=== PATIENT | female | born 2000 | race Caucasian/White ===

== ENCOUNTER 2023-04-22 16:35 | Emergency (ER) | payer BC, SELFPAY ==
[2023-04-22 16:38] VITALS: BP 116/78; PULSE 82; RESP 16; TEMP 37.2; O2SAT 99; BMI 23.0
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
[2023-04-22] MEDS: BACITRACIN 0.9 GM PACKET 1 PACKET TOPICAL (17:00)
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
== END 2023-04-22 17:11 | disposition home or self-care (01) ==
PROVIDERS: Emergency Provider Emergency Medicine
DX: T24.201A Burn of second degree of unspecified site of right lower limb, except ankle and foot, initial encounter (principal); L08.9 Local infection of the skin and subcutaneous tissue, unspecified; Z86.14 Personal history of Methicillin resistant Staphylococcus aureus infection; X19.XXXA Contact with other heat and hot substances, initial encounter
CPT/HCPCS: 99282

== ENCOUNTER 2024-01-23 15:55 | Emergency (ER) | payer BC, SELFPAY ==
[2024-01-23 16:04] VITALS: BP 136/69; PULSE 95; TEMP 37.1; O2SAT 98; BMI 24.3
--- NOTE | 2024-01-23 21:41 | ED.GENADUL1 ---
HPI HPI - General Adult General Chief complaint: Urogenital-Female Stated complaint: STD Testing Requested Time Seen by Provider: 01/23/24 16:24 Source: patient Mode of arrival: walk-in Limitations: no limitations History of Present Illness HPI narrative: Patient is a 23-year-old female who is presenting to the Emergency Room with chief concern of been exposed to herpes. Patient stated her boyfriend calls her 2 days ago and stated that he was diagnosed with herpes. Patient's boyfriend would not show the patient the lesions or show any evidence of herpes. Patient's mother is at bedside. Patient was last sexually active with her boyfriend approximately 10 days ago. Patient has no symptoms. She has no urinary frequency, urgency or burning. She has no vaginal bleeding, discharge or orders. Patient has no rashes, lesions. Patient has no external or internal vaginal complaints, no urinary complaints, no diarrhea or constipation. Patient says that she has a history of cold sores. She currently has no cold sores or canker sores. Patient has no PCP or MANAGER BABY. Patient is here for STD check to rule out herpes. Patient also tells nursing staff that I want to be ruled out for all STDs despite having no symptoms. . All systems are negative except as noted/marked. All systems reviewed and otherwise negative. . Nurses note and vital signs reviewed and patient is not hypoxic. General: The patient appears well and in no apparent distress. Patient is resting comfortably on cart. Patient is not toxic, lethargic, or listless Skin: Warm, dry, no pallor noted. There is no rash noted. No petechiae, purpura. Head: Normocephalic, atraumatic Eye: Normal conjunctiva, no drainage, EOMI. PERRL Ears, Nose, Mouth, and Throat: oral mucosa is moist. Nares patent. Mouth without vesicles. Patient has her sores or cold sores. Cardiovascular: Regular Rate and Rhythm, no murmur, gallop, rub Respiratory: Patient is in no distress, no accessory muscle use, lungs are clear to auscultation, no wheezing, rales or rhonchi Back: non-tender, GI: soft, no tenderness Musculoskeletal: Patient has full range of motion of all of the extremities, no motor, sensory, or focal neurological deficits Neurological: A&O x3, normal speech Psychiatric: Cooperative Related Data Home Medications ?Medication ?Instructions ?Recorded ?Confirmed buspirone 15 mg tablet 15 mg PO BID 01/23/24 01/23/24 Previous Rx's ?Medication ?Instructions ?Recorded clindamycin HCl 150 mg capsule 300 mg (2 x 150 mg) PO Q6H 10 days 04/22/23 #80 caps mupirocin 2 % topical ointment 1 applic topical BID #15 grams 04/22/23 Allergies Allergy/AdvReac Type Severity Reaction Status Date / Time cefdinir [From Omnicef] AdvReac Mild Verified 04/22/23 16:42 Opioid HPI Opioid Management Most Recent Opioid Data: No Data to Display PFSH PFSH Social History Smoking status: Current every day smoker Exam Constitutional Vital Signs, click to edit/add: Last Vital Signs Temp 98.7 F 01/23/24 16:04 Pulse 95 H 01/23/24 16:04 Resp 20 01/23/24 16:04 BP 136/69 01/23/24 16:04 Pulse Ox 98 01/23/24 16:04 Course Vital Signs Vital signs: Vital Signs Temperature 98.7 F 01/23/24 16:04 Pulse Rate 95 H 01/23/24 16:04 Respiratory Rate 20 01/23/24 16:04 Blood Pressure 136/69 01/23/24 16:04 Pulse Oximetry 98 01/23/24 16:04 Temperature 98.7 F 01/23/24 16:04 Pulse Rate 95 H 01/23/24 16:04 Respiratory Rate 20 01/23/24 16:04 Blood Pressure 136/69 01/23/24 16:04 Pulse Oximetry 98 01/23/24 16:04 Medical Decision Making MDM Narrative Medical decision making narrative: Yanci HALEY was at bedside during the entire HPI and physical exam and discussion with patient and mother. Patient has no symptoms of any STD. Transfer of herpes was discussed at bedside and on discharge paperwork. Patient was last with her boyfriend sexually admittedly over 10 days ago, patient has not been exposed during any sexual activity with an STD that she is aware of. Patient was told to days ago by her boyfriend and he had herpes. Patient was recommended that she needs a follow-up with a free clinic, health department, or establish PCP and MANAGER BABY. Paatient is a sexually active 23-year-old female. Patient has never had a Pap or pelvic test. Education having Tests annually went sexually active and young age was discussed at bedside with patient and mother, mother is not pressure to do this testing. Cervical cancer screening was discussed with patient and mother. Patient understands that she has no acute indication for any emergency testing at this time. Education on STD exposure, safe sex practices were discussed. Patient using no control. Patient says she is a . She is using no condoms, no motor control, nothing to stop . Discharge Plan Discharge Stand Alone Forms: Portal Instructions Chief Complaint: Urogenital-Female Clinical Impression: Possible exposure to STD Patient Disposition: Home, Self-Care Time of Disposition Decision: 16:43 Condition: Fair Prescriptions / Home Meds: No Action clindamycin HCl 150 mg capsule 300 mg PO Q6H 10 Days Qty: 80 0RF mupirocin 2 % ointment 1 applic topical BID Qty: 15 0RF buspirone 15 mg tablet 15 mg PO BID Print Language: Qatari Instructions: Sexually Transmitted Diseases (ED), Male Condom Use (ED), Safe Sex Practices (ED) Additional Instructions: If you would like any type of herpes or STD testing, follow-up with the health department, family doctor, or MANAGER BABY. A list of family doctors have been provided to you. You have no signs or symptoms of STD at this time. Referrals: Physician,Non-Staff, [Primary Care Provider] - 1 week Discharge Date/Time: 01/23/24 16:53
== END 2024-01-23 16:53 | disposition home or self-care (01) ==
PROVIDERS: Emergency Provider Emergency Medicine
DX: Z20.2 Contact with and (suspected) exposure to infections with a predominantly sexual mode of transmission (principal); F17.210 Nicotine dependence, cigarettes, uncomplicated; Z79.899 Other long term (current) drug therapy
CPT/HCPCS: 99281

== ENCOUNTER 2024-04-30 16:08 | Emergency (ER) | payer BC, SELFPAY ==
[2024-04-30 16:22] VITALS: BP 139/86; PULSE 72; TEMP 36.9; O2SAT 99; BMI 25.7
== END 2024-04-30 18:41 | disposition left against medical advice (07) ==
PROVIDERS: Emergency Provider Emergency Medicine
DX: Z53.21 Procedure and treatment not carried out due to patient leaving prior to being seen by health care provider (principal)

== ENCOUNTER 2024-05-31 18:34 | Emergency (ER) | payer OTHER, BC, SELFPAY ==
[2024-05-31 18:40] VITALS: BP 153/76; PULSE 86; TEMP 36.9; O2SAT 98; BMI 25.7
--- NOTE | 2024-05-31 18:43 | XR_ITS ---
The [address] [address] Patient Name: GERMANIA LARA MRN: [id number] date: 2000 Sex: F Assigned Patient Location: ED.MAIN Current Patient Location: Accession/Order Number: [id number] Exam Date: 05/31/2024 19:26 Report Date: 05/31/2024 20:37 At the request of: BRIGETTE SETHI Procedure: XR foot LT min 3V EXAM: XR foot LT min 3V HISTORY: Injury COMPARISON: None. TECHNIQUE: AP lateral oblique x-ray left foot. FINDINGS: Nondisplaced fracture base of the distal phalanx great toe along the lateral aspect. Extends to the periphery of the joint, no step off noted. Normal joint space. Soft tissue swelling most prominent laterally. No other fracture seen. Remaining toes metatarsals unremarkable. Midfoot and hindfoot unremarkable. XR/XR foot LT min 3V IMPRESSION: Nondisplaced fracture base of distal phalanx great toe. Electronically authenticated by: ELISA SCHAEFER Date: 05/31/2024 20:37
--- NOTE | 2024-05-31 19:52 | ED.LOWEXI1 ---
HPI HPI - Extremity Injury (Lower) General Chief Complaint: Extremity Injury, Lower Stated Complaint: FOOT INJURY Time Seen by Provider: 05/31/24 19:50 Source: patient Mode of arrival: walk-in Limitations: no limitations History of Present Illness HPI Narrative: Patient is a 23-year-old female who presents to the emergency department for an injury to her left great toe that occurred at work. She states that she dropped a metal ski on her toe. She sustained bruising and swelling to the toe. She is able to take some steps. No concern for . X-rays were obtained in the lobby prior to my evaluation. No medications taken prior to arrival. She denies any other associated injuries. Related Data Previous Rx's ?Medication ?Instructions ?Recorded ketorolac 10 mg tablet 10 mg PO TID PRN pain #10 tabs 05/31/24 ondansetron 4 mg disintegrating 4 mg PO Q6H PRN nausea and 05/31/24 tablet vomiting #12 tabs oxycodone-acetaminophen 5 mg-325 1 tab PO Q6H PRN pain 3 days #10 05/31/24 mg tablet (Percocet) tabs Allergies Allergy/AdvReac Type Severity Reaction Status Date / Time cefdinir [From Omnicef] AdvReac Mild Verified 04/22/23 16:42 Opioid HPI Opioid Management Most Recent Pain and Opioid Data: Last Pain Scale 8 05/31/24 20:10 Review of Systems ROS Constitutional Denies: fever or chills Ears, nose, mouth, and throat Denies: throat pain or nasal congestion Respiratory Denies: shortness of breath Gastrointestinal Denies: nausea or vomiting Musculoskeletal Reports: extremity pain, extremity swelling, joint pain and limited range of motion; Denies: back pain or neck pain Integumentary/Breast Denies: rash Hematologic/Lymphatic Denies: easy bruising or easy bleeding PFSH PFSH Social History Smoking status: Current every day smoker Exam Narrative Exam Narrative: Gen.: Awake, alert, in no distress Head: Normocephalic, atraumatic ENT: Moist mucous membranes Respiratory: No respiratory distress Extremities: Left great toe with diffuse edema, tenderness and ecchymosis noted to the dorsal aspect of the toe. No subungual hematoma noted. No lacerations or abrasions. Limited flexion and extension of the toes due to pain with 2+ left DP pulse Psych: Normal mood and affect Neuro: No focal neuro deficit Skin: Warm, dry, intact Constitutional Vital Signs, click to edit/add: Last Vital Signs Temp 98.4 F 05/31/24 18:40 Pulse 86 05/31/24 18:40 Resp 18 05/31/24 18:40 BP 153/76 H 05/31/24 18:40 Pulse Ox 98 05/31/24 18:40 O2 Del Method Room Air 05/31/24 18:40 Course Vital Signs Vital signs: Vital Signs Temperature 98.4 F 05/31/24 18:40 Pulse Rate 86 05/31/24 18:40 Respiratory Rate 18 05/31/24 18:40 Blood Pressure 153/76 H 05/31/24 18:40 Pulse Oximetry 98 05/31/24 18:40 Oxygen Delivery Method Room Air 05/31/24 18:40 Temperature 98.4 F 05/31/24 18:40 Pulse Rate 86 05/31/24 18:40 Respiratory Rate 18 05/31/24 18:40 Blood Pressure 153/76 H 05/31/24 18:40 Pulse Oximetry 98 05/31/24 18:40 Oxygen Delivery Method Room Air 05/31/24 18:40 MDM - Extremity Injury (Lower) MDM Narrative Medical decision making narrative: X-rays of the foot were obtained in the lobby showing the patient has an avulsion fracture of the proximal aspect of the left great toe, proximal phalanx. She is neurovascularly intact pre and post postop shoe application. Rest, ice, elevate. Short course of analgesics and NSAIDs given with work restrictions. Return to the ER if symptoms change or worsen. Follow-up with occupational health and podiatry. Breathalyzer EtOH was obtained by [email or web address] drug testing. We do not have any technologist infectious disease available for urine drug testing and occupational health is closed at this time. We attempted to contact the patient supervisor logging to make them aware that the patient will need to return to occupational health on Sunday for urine drug testing if needed. We did not receive an answer or call back from the patient's employer. I did contact the occupational health nurse, Yusef, who recommended the patient come back Sunday to the office for drug testing and further evaluation and restrictions per occupational health. SUPERVISED APC VISIT, PHYSICIAN ATTESTATION: Based on the medical record the care appears appropriate. ? Medical Records Attestation: I reviewed the patient's medical records. Imaging Data XR foot: Attestation: I have reviewed the pertinent imaging results. Discharge Plan Discharge Stand Alone Forms: Portal Instructions Chief Complaint: Extremity Injury, Lower Clinical Impression: Closed fracture of left great toe Patient Disposition: Home, Self-Care Time of Disposition Decision: 20:03 Condition: Good Prescriptions / Home Meds: New ketorolac 10 mg tablet 10 mg PO TID PRN (Reason: pain) Qty: 10 0RF oxycodone-acetaminophen [Percocet] 5-325 mg tablet 1 tab PO Q6H PRN (Reason: pain) 3 Days Qty: 10 0RF Rx Instructions: DX: S92.405B ondansetron 4 mg tablet,disintegrating 4 mg PO Q6H PRN (Reason: nausea and vomiting) Qty: 12 0RF Print Language: Maori Instructions: Toe Fracture (ED) Additional Instructions: Rest, ice, elevate the foot. Please follow up with occupational health on Sunday for drug testing and further instructions. Referrals: [facility] [Outside] - 06/02/24 Cristi Naranjo DPM [Physician] - As soon as possible
[2024-05-31] MEDS: HYDROCODONE/ACET 5-325 MG TABLET 2 TAB PO (20:18)
[2024-05-31] MEDS: KETOROLAC TROMETHAMINE 10 MG TABLET PO (20:18)
== END 2024-05-31 20:26 | disposition home or self-care (01) ==
PROVIDERS: Emergency Provider Emergency Medicine
DX: S92.415A Nondisplaced fracture of proximal phalanx of left great toe, initial encounter for closed fracture (principal); W20.8XXA Other cause of strike by thrown, projected or falling object, initial encounter
CPT/HCPCS: 73630; 99284

== ENCOUNTER 2024-07-16 10:00 | Outpatient (OUT) | payer OTHER, SELFPAY ==
--- NOTE | 2024-07-16 | XR_ITS ---
The [address] [address] Patient Name: GERMANIA LARA MRN: [id number] date: 2000 Sex: F Assigned Patient Location: Current Patient Location: Accession/Order Number: [id number] Exam Date: 07/16/2024 10:02 Report Date: 07/17/2024 08:31 At the request of: JOSE METZ Procedure: XR foot LT min 3V PROCEDURE: XR foot LT min 3V COMPARISON: 05/31/2024 HISTORY: LEFT FOOT PAIN FINDINGS: BONES:Again demonstrated is an intra-articular fracture lateral base of the first distal phalanx. Some interval bone formation and bony bridging is observed. No new fracture or dislocation SOFT TISSUES:Negative. No visible soft tissue swelling. EFFUSION:None visible. OTHER: Negative. XR/XR foot LT min 3V IMPRESSION: Stable healing intra-articular fracture lateral base of the first distal phalanx Electronically authenticated by: SOTO CARRILLO Date: 07/17/2024 08:31
--- OUTSIDE RECORDS SUMMARY | 2024-07-16 10:19 | XMS_ITS | CCD ---
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 additional P-5'-P [Catalytic activity/Vol] 16 U/L 10-60 [facility] Serum or plasma albumin/glob ulin mass ratioOrdered By: Magaly Guadarrama on 09-13-2022 Albumin/Globulin [Mass ratio] 1.3 {ratio} [facility] Serum or plasma alkaline swapna sphatase measurement (enzymatic activity/volume)Ordered By: Magaly Guadarrama on 09-13-2022 ALP [Catalytic activity/Vol] 56 U/L 32-92 [facility] Serum or plasma anion gap de terminationOrdered By: Denisa Coleman on 09-13-2022 Anion gap [Moles/Vol] 8.5 mmol/L 6.0-15.0 [facility] Serum or plasma aspartate am inotransferase measurement (enzymatic activity/volume)Ordered By: Magaly Guadarrama on 09-13-2022 AST [Catalytic activity/Vol] 19 U/L 10-42 [facility] Serum or plasma calcium allison urement (mass/volume)Ordered By: Denisa Coleman on 09-13-2022 Calcium [Mass/Vol] 8.6 mg/dL 8.2-10.2 [facility] Serum or plasma chloride melvin surement (moles/volume)Ordered By: Denisa Coleman on 09-13-2022 Chloride [Moles/Vol] 107 mmol/L 95-114 [facility] Serum or plasma glucose allison urement (mass/volume)Ordered By: Denisa Coleman on 09-13-2022 Glucose [Mass/Vol] 96 mg/dL 70-100 [facility] Comment on above: ADA recommended refe rence rangeRandom Glucose Reference Range is dependent on time and content of last meal. Glucose of more than 200 mg/dL in a nonstressed, ambulatory subject supports the diagnosis of Diabetes Mellitus. Serum or plasma non-glucuron idated bilirubin measurement (mass/volume)Ordered By: Magaly Guadarrama on 09-13-2022 Bilirubin.indirect [Mass/Vol] TNP [facility] Comment on above: Test not performed Serum or plasma potassium me asurement (moles/volume)Ordered By: Denisa Coleman on 09-13-2022 Potassium [Moles/Vol] 3.3 mmol/L 3.5-5.1 [facility] Serum or plasma sodium measu rement (moles/volume)Ordered By: Denisa Coleman on 09-13-2022 Sodium [Moles/Vol] 137 mmol/L 136-146 [facility] Serum or plasma total biliru bin measurement (mass/volume)Ordered By: Magaly Guadarrama on 09-13-2022 Bilirubin [Mass/Vol] 0.7 mg/dL 0.3-1.2 [facility] Serum or plasma total carbon dioxide measurement (moles/volume)Ordered By: Denisa Coleman on 09-13-2022 CO2 [Moles/Vol] 24.8 mmol/L 22.0-30.0 [facility] Serum or plasma urea nitroge n measurement (mass/volume)Ordered By: Denisaamilcar Coleman on 09-13-2022 Urea nitrogen [Mass/Vol] 3 mg/dL 07-07 [facility] WBC Auto (Bld) [#/Vol]Ordere d By: Denisaamilcar Coleman on 09-13-2022 WBC (Bld) [#/Vol] 9.6 10*3/uL 3.8-11.6 [facility] CARDIAC MAURICE 3-6on 2 CK [Catalytic activity/Vol] 167 U/L Normal 26-192 [facility] Comment on above: Performed By: #### C MREP #### [facility] [address] [place] [address] Dr. Sylvie Vela CK.MB [Mass/Vol] 1.66 ng/mL Normal <=3.60 [facility] Comment on above: Performed By: #### C MREP #### [facility] [address] [address] [address] Sylvie HATHAWAYTROP 196.2 pg/mL Critically high 4.0-51.3 [facility] Comment on above: Result Comment: CUT- OFF POINTS HAVE BEEN ESTABLISHED BASED ON THE FOURTH UNIVERSAL DEFINITIONS OF MYOCARDIAL INFARCTION. THE UPPER REFERENCE LIMIT (URL) OF TROPONIN, DEFINED THE 99TH PERCENTILE OF cTnI DISTRIBUTION IN A REFERENCE POPULATION, HAS BEEN CONFIRMED THE DECISION THRESHOLD FOR MD DIAGNOSIS. Performed By: #### C MREP #### [facility] [address] [address] [address] Sylvie Vela CK [Catalytic activity/Vol] 113 U/L Normal 26-192 [facility] Comment on above: Performed By: #### C MREP #### [facility] [address] [address] [address] Sylvie Vela CK.MB [Mass/Vol] 1.37 ng/mL Normal <=3.60 [facility] Comment on above: Performed By: #### C MREP #### [facility] [address] [address] [address] Sylvie Vela HSTROP 268.9 pg/mL Critically high 4.0-51.3 [facility] Comment on above: Result Comment: CUT- OFF POINTS HAVE BEEN ESTABLISHED BASED ON THE FOURTH UNIVERSAL DEFINITIONS OF MYOCARDIAL INFARCTION. THE UPPER REFERENCE LIMIT (URL) OF TROPONIN, DEFINED THE 99TH PERCENTILE OF cTnI DISTRIBUTION IN A REFERENCE POPULATION, HAS BEEN CONFIRMED THE DECISION THRESHOLD FOR MD DIAGNOSIS. Performed By: #### C MREP #### [facility] [address] [place] [address] Dr. Sylvie Vela CARDIAC MAURICE ADMITon 022 CK [Catalytic activity/Vol] 94 U/L Normal 26-192 [facility] Comment on above: Performed By: #### C MIGNON ESPARZADM #### [facility] [address] [place] [address] Dr. Sylvie Vela CK.MB [Mass/Vol] 0.82 ng/mL Normal <=3.60 [facility] Comment on above: Performed By: #### C MIGNON ESPARZADM #### [facility] [address] [place] [address] Dr. Sylvie Vela HSTROP 66.3 pg/mL Critically high 4.0-51.3 [facility] Comment on above: Result Comment: CUT- OFF POINTS HAVE BEEN ESTABLISHED BASED ON THE FOURTH UNIVERSAL DEFINITIONS OF MYOCARDIAL INFARCTION. THE UPPER REFERENCE LIMIT (URL) OF TROPONIN, DEFINED THE 99TH PERCENTILE OF cTnI DISTRIBUTION IN A REFERENCE POPULATION, HAS BEEN CONFIRMED THE DECISION THRESHOLD FOR MD DIAGNOSIS. Performed By: #### C MIGNON ESPARZADM #### [facility] [address] [place] [address] Dr. Sylvie Vela JODI 28 ng/mL Normal 9-82 [facility] Comment on above: Performed By: #### C MIGNON ESPARZADM #### [facility] [address] [place] [address] Dr. Sylvie Vela CBC AUTO DIFFon 09-12-2022 BASO # 0.1 103/ul Normal 0.0-0.1 [facility] Comment on above: Performed By: #### C BC #### [facility] [address] [place] [address] Dr. Sylvie Vela Basophils/100 WBC (Bld) 0.4 % Normal 0.2-2.0 [facility] Comment on above: Performed By: #### C BC #### [facility] [address] [place] [address] Dr. Sylvie Vela EO # 0.0 103/ul Normal 0.0-0.7 [facility] Comment on above: Performed By: #### C BC #### [facility] [address] [place] [address] Dr. Sylvie Vela Eosinophils/100 WBC (Bld) 0.1 % Critically low 0.9-7.0 [facility] Comment on above: Performed By: #### C BC #### [facility] [address] [place] [address] Dr. Sylvie Vela Erythrocyte distribution width (RBC) [Ratio] 11.9 % Normal 11.0-15.0 [facility] Comment on above: Performed By: #### C BC #### [facility] [address] [place] [address] Dr. Sylvie Vela Hematocrit (Bld) [Volume fraction] 43.1 % Normal 36.0-48.0 [facility] Comment on above: Performed By: #### C BC #### [facility] [address] [place] [address] Dr. Sylvie Vela Hemoglobin (Bld) [Mass/Vol] 14.5 g/dL Normal 12.0-16.0 [facility] Comment on above: Performed By: #### C BC #### [facility] [address] [place] [address] Dr. Sylvie Vela IG # 0.09 10e3/ul Critically high 0.00-0.03 [facility] Comment on above: Performed By: #### C BC #### [facility] [address] [place] [address] Dr. Sylvie Vela IG % 0.7 % Critically high 0.0-0.5 [facility] Comment on above: Performed By: #### C BC #### [facility] [address] [place] [address] Dr. Sylvie Vela LYMPH # 3.9 103/ul Critically high 1.2-3.8 [facility] Comment on above: Performed By: #### C BC #### [facility] [address] [place] [address] Dr. Sylvie Vela Lymphocytes/100 WBC (Bld) 31.0 % Normal 20.5-60.0 [facility] Comment on above: Performed By: #### C BC #### [facility] [address] [place] [address] Dr. Sylvie Vela MANUAL DIFF REQ NO Normal [facility] Comment on above: Performed By: #### C BC #### [facility] [address] [place] [address] Dr. Sylvie Vela MCH (RBC) [Entitic mass] 30.9 pg Normal 26.7-34.0 [facility] Comment on above: Performed By: #### C BC #### [facility] [address] [place] [address] Dr. Sylvie Vela MCHC (RBC) [Mass/Vol] 33.6 g/dL Normal 29.9-35.2 [facility] Comment on above: Performed By: #### C BC #### [facility] [address] [place] [address] Dr. Sylvie Vela MCV (RBC) [Entitic vol] 91.9 fL Normal 81.0-99.0 [facility] Comment on above: Performed By: #### C BC #### [facility] [address] [place] [address] Dr. Sylvie Vela MONO # 0.4 103/ul Normal 0.3-0.8 [facility] Comment on above: Performed By: #### C BC #### [facility] [address] [place] [address] Dr. Sylvie Vela Monocytes/100 WBC (Bld) 3.4 % Normal 1.7-12.0 [facility] Comment on above: Performed By: #### C BC #### [facility] [address] [place] [address] Dr. Sylvie Vela NEUT # 8.1 103/ul Critically high 1.4-6.5 [facility] Comment on above: Performed By: #### C BC #### [facility] [address] [place] [address] Dr. Sylvie Vela Neutrophils/100 WBC (Bld) 64.4 % Normal 43.0-75.0 [facility] Comment on above: Performed By: #### C BC #### [facility] [address] [place] [address] Dr. Sylvie Vela Platelet mean volume (Bld) [Entitic vol] 10.4 fL Normal 9.5-13.5 [facility] Comment on above: Performed By: #### C BC #### [facility] [address] [place] [address] Dr. Sylvie Vela PLT 65 103/ul Critically low 150-450 [facility] Comment on above: Performed By: #### C BC #### [facility] [address] [place] [address] Dr. Sylvie Vela RBC 4.69 106/ul Normal 4.20-5.40 [facility] Comment on above: Performed By: #### C BC #### [facility] [address] [place] [address] Dr. Sylvie Vela WBC 12.6 103/ul Critically high 4.0-11.0 [facility] Comment on above: Performed By: #### C BC #### [facility] [address] [place] [address] Dr. Sylvie Vela DRUG SCREEN RAPID (URINE)on 09-12-2022 AMP Negative Normal NEGATIVE [facility] Comment on above: Performed By: #### D RUGRPD #### [facility] [address] [place] [address] Dr. Sylvie Vela BAR Negative Normal NEGATIVE [facility] Comment on above: Performed By: #### D RUGRPD #### [facility] [address] [place] [address] Dr. Sylvie Vela BUP Negative Normal NEGATIVE [facility] Comment on above: Performed By: #### D RUGRPD #### [facility] [address] [place] [address] Dr. Sylvie Vela BZO Negative Normal NEGATIVE [facility] Comment on above: Performed By: #### D RUGRPD #### [facility] [address] [place] [address] Dr. Sylvie Vela RADHA Negative Normal NEGATIVE [facility] Comment on above: Performed By: #### D RUGRPD #### [facility] [address] [place] [address] Dr. Sylvie Vela CUT-OFFS SEE BELOW Normal [facility] Comment on above: Result Comment: AMP (Amphetamine): 500ng/mL, BAR (Barbituates): 200 ng/mL, BZO (Benzodiazepines): 150 ng/mL, BUP (Buprenorphine): 10 ng/mL, RADHA (Cocaine): 150 ng/mL, mAMP (Methamphetamine): 500 ng/mL, MTD (Methadone): 200 ng/mL, OPI (Opiates): 100 ng/mL, OXY (Oxycodone): 100 ng/mL, PCP (Phencyclidine): 25 ng/mL, PPX (Propoxyphene): 300 ng/mL, THC (Cannabinoids): 50 ng/mL, TCA (Trycyclic Antidepressants): 300 ng/mL Performed By: #### D RUGRPD #### [facility] [address] [place] [address] Dr. Sylvie Vela DRUG CUT HEADER DRUG CLASS TEST SYSTEM CUT-OFF CONCENTRATIONS ARE FOLLOWS: Normal [facility] Comment on above: Performed By: #### D RUGRPD #### [facility] [address] [place] [address] Dr. Sylvie Vela mAMP Negative Normal NEGATIVE [facility] Comment on above: Performed By: #### D RUGRPD #### [facility] [address] [place] [address] Dr. Sylvie Vela MTD Negative Normal NEGATIVE [facility] Comment on above: Performed By: #### D RUGRPD #### [facility] [address] [place] [address] Dr. Sylvie Vela OPI Negative Normal NEGATIVE [facility] Comment on above: Performed By: #### D RUGRPD #### [facility] [address] [place] [address] Dr. Sylvie Vela OXY Negative Normal NEGATIVE [facility] Comment on above: Performed By: #### D RUGRPD #### [facility] [address] [place] [address] Dr. Sylvie Vela PCP Negative Normal NEGATIVE [facility] Comment on above: Performed By: #### D RUGRPD #### [facility] [address] [address] [address] Sylvie Vela PPX Negative Normal NEGATIVE [facility] Comment on above: Performed By: #### D RUGRPD #### [facility] [address] [place] [address] Dr. Sylvie Vela TCA Negative Normal NEGATIVE [facility] Comment on above: Performed By: #### D RUGRPD #### [facility] [address] [place] [address] Dr. Sylvie Vela THC Negative Normal NEGATIVE [facility] Comment on above: Performed By: #### D RUGRPD #### [facility] [address] [place] [address] Dr. Sylvie Vela ETHANOL (BLD ALC)on 09-12-20 22 ALC NOTE NOTE: 80 mg/dl is the legal limit for a blood alcohol level Normal [facility] Comment on above: Performed By: #### C ISAIAS CMADM #### [facility] [address] [place] [address] Dr. Sylvie Vela Ethanol [Mass/Vol] 185 mg/dL Normal [facility] Comment on above: Performed By: #### C ISAIAS CMADM #### [facility] [address] [place] [address] Dr. Sylvie Vela LACTATE/LACTIC ACIDon 2021 Lactate [Moles/Vol] 2.2 mmol/L Critically high 0.4-1.9 [facility] Comment on above: Performed By: #### C ISAIAS CMADM #### [facility] [address] [place] [address] Dr. Sylvie Vela Lactate [Moles/Vol] 8.5 mmol/L Critically high 0.4-1.9 [facility] Comment on above: Performed By: #### C DAMIEN ESPARZA #### [facility] [address] [address] [address] Sylvie Vela Laboratory - Chemistry and C hemistry - challengeOrdered By: Magaly Guadarrama on 09-12-2022 Natriuretic peptide B (Bld) [Mass/Vol] 99.0 pg/mL 5-100 [facility] Magnesium [Mass/Vol] 1.7 mg/dL 1.6-2.6 [facility] No Panel InformationOrdered By: Magaly Guadarrama on 09-12-2022 D-Dimer Quantitative (PE/DVT) 686 ng/mL 0-243 [facility] Comment on above: The reference range for D-dimer is <243 ng/mL D-dimer units.D-dimer results must be used in conjunction with a clinicalpretest probability (PTP) assessment model for deep veinthrombosis (DVT) and pulmonary embolism (PE). Results <230ng/mL d-dimer units can be used as a negative predictor inpatients with low or moderate probability for DVT/PE.Results above the exclusion threshold of 230 ng/ml D-dimerunits for DVT/PE may indicate the need for furtherdiagnostic testing.D-Dimer can be increased in hospitalized patients due toco-morbid conditions. PREG HCG QUALon 09-12-2022 , QUAL Negative Normal NEGATIVE [facility] Comment on above: Performed By: #### C DAMIEN ESPARZA #### [facility] [address] [address] [address] Sylvie Vela PROF 14(COMP METB)on 022 Albumin [Mass/Vol] 4.4 g/dL Normal 3.4-5.0 [facility] Comment on above: Performed By: #### C DAMIEN ESPARZA #### [facility] [address] [address] [address] Sylvie Vela Albumin/Globulin [Mass ratio] 1.0 {ratio} Normal [facility] Comment on above: Performed By: #### C DAMIEN ESPARZA #### [facility] [address] [address] [address] Sylvie Vela ALP [Catalytic activity/Vol] 114 U/L Normal 46-116 [facility] Comment on above: Performed By: #### C ISAIAS, MIGNONDM #### [facility] [address] [address] [address] Sylvie Vela ALT [Catalytic activity/Vol] 24 U/L Normal 14-59 [facility] Comment on above: Performed By: #### C ISAIAS, MIGNONDM #### [facility] [address] [address] [address] Sylvie Vela Anion gap [Moles/Vol] 21.7 mmol/L Normal [facility] Comment on above: Performed By: #### C ISAIAS, MIGNONDM #### [facility] [address] [address] [address] Sylvie Vela AST [Catalytic activity/Vol] 45 U/L Critically high 15-37 [facility] Comment on above: Performed By: #### C DAMIEN ESPARZA #### [facility] [address] [place] [address] Dr. Sylvie Vela Bilirubin [Mass/Vol] 0.3 mg/dL Normal 0.2-1.0 [facility] Comment on above: Performed By: #### C DAMIEN ESPARZA #### [facility] [address] [address] [address] Sylvie Vela Calcium [Mass/Vol] 8.7 mg/dL Normal 8.5-10.1 [facility] Comment on above: Performed By: #### C ISAIAS, MIGNONDM #### [facility] [address] [place] [address] Dr. Sylvie Vela Chloride [Moles/Vol] 98 mmol/L Normal 98-107 [facility] Comment on above: Performed By: #### C ISAIAS, MIGNONDM #### [facility] [address] [address] [address] Sylvie Vela CO2 [Moles/Vol] 20.8 mmol/L Critically low 21.0-32.0 [facility] Comment on above: Performed By: #### C ISAIAS, DAMIEN #### [facility] [address] [address] [address] Sylvie Vela Creatinine [Mass/Vol] 1.16 mg/dL Critically high 0.55-1.02 [facility] Comment on above: Performed By: #### C MP, CMADM #### [facility] [address] [address] [address] Sylvie Vela EGFR-AF MACEDONIAN >60 Normal >=60 [facility] Comment on above: Performed By: #### C MP, CMADM #### [facility] [address] [address] [address] Sylvie Vela EGFR-NON AF MACEDONIAN 60 mL/min/1.73m2 Normal >=60 [facility] Comment on above: Performed By: #### C ISAIAS, CMADM #### [facility] [address] [address] [address] Sylvie Vela Globulin (S) [Mass/Vol] 4.2 g/dL Normal [facility] Comment on above: Performed By: #### C ISAIAS, CMADM #### [facility] [address] [address] [address] Sylvie Vela Glucose [Mass/Vol] 367 mg/dL Critically high 74-106 [facility] Comment on above: Performed By: #### C ISAIAS, CMADM #### [facility] [address] [address] [address] Sylvie Vela Potassium [Moles/Vol] 4.5 mmol/L Normal 3.5-5.1 [facility] Comment on above: Performed By: #### C MP, CMADM #### [facility] [address] [address] [address] Sylvie Vela Protein [Mass/Vol] 8.6 g/dL Critically high 6.4-8.2 [facility] Comment on above: Performed By: #### C MP, CMADM #### [facility] [address] [address] [address] Sylvie Vela Sodium [Moles/Vol] 136 mmol/L Normal 136-145 [facility] Comment on above: Performed By: #### C ISAIAS, CMADM #### [facility] [address] [place], [place] [address] Dr. Sylvie Vela Urea nitrogen [Mass/Vol] 9.0 mg/dL Normal 6.4-19.3 [facility] Comment on above: Performed By: #### C ISAIAS, CMADM #### [facility] [address] [place], [place] [address] Dr. Sylvie Vela Urea nitrogen/Creatinine [Mass ratio] 7.8 mg/mg Normal [facility] Comment on above: Performed By: #### C ISAIAS, CMADM #### [facility] [address] [place], [place] [address] Dr. Sylvie Vela Troponin I.cardiac [Mass/vol ume] in Serum or Plasma by High sensitivity methodOrdered By: Denisa Coleman on 09-12-2022 Troponin I.cardiac High sensitivity method [Mass/Vol] 28 pg/mL 0-15 [facility] Urine lactic acid measuremen tOrdered By: Denisa Coleman on 09-12-2022 Lactate (U) [Moles/Vol] 1.0 mmol/L 0.5-2.2 [facility] XR CHEST 1 Von 09-12-2022 XR CHEST 1 V CXR HISTORY: Shortness of breath COMPARISON: None. TECHNIQUE: 1 view chest submitted for review. FINDINGS: Nipple markers are demonstrated. The lungs are adequately expanded without evidence of acute infiltrate or effusion. The cardiac silhouette measures within normal. Pulmonary vascularity is unremarkable. Osseous structures are within normal limits for age. IMPRESSION: No plain film evidence for acute cardiopulmonary disease. Electronically authenticated by: KARMEN MOORE Date: 2022-09-12 00:59 Normal [facility] COVID-19 SOFIAOrdered By: Tung Carney on 06-21-2022 SARS-CoV+SARS-CoV-2 (COVID-19) Ag IA.rapid Ql (Resp) Negative Negative [facility] Comment on above: This is a duplicate Ruma SARS Antigen (ALFREDO) result to be used for statistical tracking purpose only. No Panel InformationOrdered By: Hien Carney on 06-21-2022 SARS Antigen (LFIA) [facility] Covid-19 PCR (CVDTBH)on SARS-CoV-2 (COVID-19) RNA NUSRAT+probe Ql (Unsp spec) Not detected Normal NOT DETECTED [facility] Comment on above: Result Comment: This test is not yet approved or cleared by the [place] FDA. When there are no FDA-approved or cleared tests available, and other criteria are met, FDA can make tests available under an emergency access mechanism called an Emergency Use Authorization (EUA). The EUA for this test is supported by the [place] and Human Service's (HHS's) declaration that circumstances exist to justify the emergency use of in vitro diagnostics for the detection and/or diagnosis of the virus that causes COVID-19. This EUA will remain in effect (meaning this test can be used) for the duration of the COVID-19 declaration justifying emergency of IVDs, unless it is terminated or revoked by FDA (after which the test may no longer be used). When diagnostic testing is negative, the possibility of a false negative should be considered in the context of a patient's recent exposures and the presence of clinical signs and symptoms consistent with SARS-CoV-2. Performed By: #### C ISAIAS, CMADM #### [facility] [address] [place] [address] Dr. Sylvie Vela GROUP A STREP CULTUREon S. pyogenes Ag Ql (Unsp spec) Culture Observations: NEGATIVE FOR GROUP A STREPTOCOCCUS. Normal [facility] Comment on above: Performed By: #### S SCRN, GRASTCX #### [facility] [address] [place] [address] Dr. Sylvie Vela STREPT SCREENon 06-20-2022 STREP SCREEN A Negative Normal NEGATIVE The [facility] Comment on above: Performed By: #### S SCRN, GRASTCX #### [facility] [address] [place] [address] Dr. Sylvie Vela CULTURE URINEon 06-03-2022 CULTURE URINE Culture Observations: MODERATE GROWTH OF MIXED GENITAL LETICIA. NO POTENTIAL PATHOGENS SEEN. Normal [facility] Comment on above: Performed By: #### C ISAIAS, CMADM #### [facility] [address] [place] [address] Dr. Sylvie Vela ER URINE PROFILEon 2 Bilirubin Ql (U) Negative Normal NEGATIVE The [facility] Comment on above: Performed By: #### Anand PEREZ UMICRO #### [facility] [address] [place] [address] Dr. Sylvie Vela Clarity (U) CLEAR Normal CLEAR [facility] Comment on above: Performed By: #### Anand PEREZ UMICRO #### [facility] [address] [place] [address] Dr. Sylvie Vela Color (U) LT. YELLOW Normal YELLOW [facility] Comment on above: Performed By: #### Anand PEREZ UMICRO #### [facility] [address] [place] [address] Dr. Sylvie WORLEY A micrscopic examination will be performed if indicated. Normal [facility] Comment on above: Performed By: #### Anand PEREZ UMICRO #### [facility] [address] [place] [address] Dr. Sylvie Vela Glucose Ql (U) Negative Normal NEGATIVE The [facility] Comment on above: Performed By: #### Anand PEREZ UMICRO #### [facility] [address] [place] [address] Dr. Sylvie Vela Hemoglobin Ql (U) MODERATE Abnormal NEGATIVE The [facility] Comment on above: Performed By: #### Anand PEREZ UMICRO #### [facility] [address] [place] [address] Dr. Sylvie Vela Ketones Ql (U) TRACE Abnormal NEGATIVE [facility] Comment on above: Performed By: #### Anand PEREZ UMICRO #### [facility] [address] [place] [address] Dr. Sylvie Vela LEUKOCYTES SMALL Abnormal NEGATIVE [facility] Comment on above: Performed By: #### E RUR UMICRO #### [facility] [address] [place] [address] Dr. Sylvie Vela Nitrite Ql (U) Negative Normal NEGATIVE [facility] Comment on above: Performed By: #### Anand RUR UMICRO #### [facility] [address] [place] [address] Dr. Sylvie Vela pH (U) 5.5 [pH] Normal 5-9 [facility] Comment on above: Performed By: #### ROMAINE LOYARO #### [facility] [address] [place] [address] Dr. Sylvie Vela SPEC GRAVITY >=1.030 Abnormal 1.005-<=1.0 25 [facility] Comment on above: Performed By: #### ROMAINE LOYARO #### [facility] [address] [place] [address] Dr. Sylvie Vela UA PROTEIN Negative Normal NEGATIVE/ TRACE [facility] Comment on above: Performed By: #### ROMAINE LOYARO #### [facility] [address] [place] [address] Dr. Sylvie Vela UR MICRO IND INDICATED Normal [facility] Comment on above: Performed By: #### ROMAINE LOYARO #### [facility] [address] [place] [address] Dr. Sylvie Vela Urobilinogen Qn (U) 0.2 {Peyton'U}/dL Normal 0.2 - 1. 0 [facility] Comment on above: Performed By: #### ROMAINE LOYARO #### [facility] [address] [place] [address] Dr. Sylvie Vela URINE MICROSCOPIC ONLYon BACTERIA TRACE Abnormal NONE SEEN [facility] Comment on above: Performed By: #### ROMAINE LOYARO #### [facility] [address] [place] [address] Dr. Sylvie Vela Bacteria identified Cx Nom (U) INDICATED Normal [facility] Comment on above: Performed By: #### ROMAINE LOYARO #### [facility] [address] [place] [address] Dr. Sylvie Vela CAST NONE SEEN Normal NONE SEEN [facility] Comment on above: Performed By: #### ROMAINE LOYARO #### [facility] [address] [place] [address] Dr. Sylvie Vela Crystals LM Nom (Urine sed) NONE SEEN Normal NONE SEEN [facility] Comment on above: Performed By: #### E RUR UMICRO #### [facility] [address] [place] [address] Dr. Sylvie Vela Epithelial cells LM Ql (Urine sed) RARE Normal NONE SEEN /RARE [facility] Comment on above: Performed By: #### E RUR, UMICRO #### [facility] [address] [place] [address] Dr. Sylvie Vela MUCOUS NONE SEEN Normal NONE SEEN [facility] Comment on above: Performed By: #### E RUR, UMICRO #### [facility] [address] [place] [address] Dr. Sylvie Vela RBC 2-5 Abnormal 0-2 [facility] Comment on above: Performed By: #### Anand PEREZ, UMICRO #### [facility] [address] [place] [address] Dr. Sylvie Vela WBC 10-20 Abnormal NONE SEEN [facility] Comment on above: Performed By: #### E RUR, UMICRO #### [facility] [address] [place] [address] Dr. Sylvie Vela Culture,Throaton 08-08-2021 Culture,Throat O:STREPA: Strep pyogenes (Group A) (OrganismID: 1.1) Culture,Throat: Quantity (NEW) (OrganismID: 1.1) 1+ (Growth in 1st quadrant only) (OrganismID: 1.1) Strep Sensitivity (OrganismID: 1.1) Penicillin continues to be the drug of choice for (OrganismID: 1.1) Strep Sens Part 2 (OrganismID: 1.1) streptococcal infection. Sensitivity will only be (OrganismID: 1.1) Strep Sens Part 3 (OrganismID: 1.1) performed upon request. (OrganismID: 1.1)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 Physical Exam - General Limitations: no limitations General appearance: alert, in no apparent distress - Head Head exam: atraumatic, normocephalic - Eye Eye exam: Present: PERRL, EOMI - ENT ENT exam: mucous membranes moist - Neck Neck exam: Present: full ROM - Chest Chest inspection: Present: symmetric chest wall rise - Respiratory Respiratory exam: Absent: respiratory distress, wheezes, stridor - Cardiovascular Cardiovascular exam: Present: regular rate, normal rhythm - Abdominal Exam Abdominal exam: Present: soft, Non-Tender - Extremities Exam Extremities exam: Present: normal inspection, full ROM, normal capillary refill - Back Exam Back exam: Present: full ROM. Absent: CVA tenderness (R), CVA tenderness (L) - Neurological Exam Neurological exam: Present: alert - Psychiatric Psychiatric exam: Present: normal affect, depressed - Skin Skin exam: Present: warm, dry, intact, normal color. Absent: rash, cyanosis, diaphoresis Course Course Narrative: 20-year-old female presented with concern for intoxication. I saw patient upon her arrival. She does appear to be somnolent but is arousable and answering questions appropriately. She describes drinking alcohol, taking Xanax tonnight , previously Percocets, and she also references fentanyl specifically asking me if it would show on a drug screen if we were to do one. . I do detailed discussion with her about the events of the day, she states that she was with a friend and her sisters. I asked her why she was taken her medications, and she describes feeling anxious and depressed, relates a history of depression as a teen, previously prescribed medications for this. When I specifically ask her why she took her Xanax, she said that is because that she was depressed. I specifically asked her she was wanting to hurt herself today, and she declined to answer. When I ask her if she has herself the past she declines to answer. She does reference some worsening depression, she describes her boyfriend geneva (more content not included)... Normal [facility] Ethanolon 11-05-2020 Ethanol [Mass/Vol] mg/dL Normal Less than 10 [facility] Comment on above: Performed By: #### U AREF #### [facility] [address] [place] [address] 17982 HCG,Routine Teston 11-05-2020 HCG,Routine Test Negative Normal Negative [facility] Comment on above: Performed By: #### U AREF #### [facility] [address] [place] [address] 81199 POC Glucometer Teston 2020 Glucose [Mass/Vol] 107 mg/dL High 70-99 [facility] Comment on above: Performed By: #### U AREF #### [facility] [address] [place] [address] 85924 Salicylateon 11-05-2020 Salicylate < 2.5 Low 15.0-30.0 [facility] Comment on above: Performed By: #### U AREF #### [facility] [address] [place] [address] 74942 Urinalysis Reflex Cult Micro on 11-05-2020 Bacteria,Urine Many Abnormal None-Few [facility] Comment on above: Performed By: #### U AREF #### [facility] [address] [place] [address] 25066 Bilirubin,Urine Negative Normal Negative [facility] Comment on above: Performed By: #### U AREF #### [facility] [address] [place] [address] 54415 Blood,Urine Negative Normal Negative [facility] Comment on above: Performed By: #### U AREF #### [facility] [address] [place] [address] 88852 Clarity (U) Clear Normal Clear [facility] Comment on above: Performed By: #### U AREF #### [facility] [address] [place] [address] 94469 Color (U) Light-Yellow Normal Yellow [facility] Comment on above: Performed By: #### U AREF #### [facility] [address] [place] [address] 22930 Culture Indicated,Urine YES Abnormal NO A [facility] Comment on above: Performed By: #### U AREF #### [facility] [address] [place] [address] 47695 Glucose Ql (U) Normal Normal Normal [facility] Comment on above: Performed By: #### U AREF #### [facility] [address] [place] [address] 84280 Ketones Ql (U) Negative Normal Negative [facility] Comment on above: Performed By: #### U AREF #### [facility] [address] [place] [address] 34589 Leukocyte esterase Test strip Ql (U) Moderate Abnormal Negative [facility] Comment on above: Performed By: #### U AREF #### [facility] [address] [place] [address] 36911 Mucus,Urine Few Normal None-Few [facility] Comment on above: Performed By: #### U AREF #### [facility] [address] [place] [address] 24114 Nitrite,Urine Negative Normal Negative [facility] Comment on above: Performed By: #### U AREF #### [facility] [address] [place] [address] 38998 PH,Urine 7.5 pH Units Normal 5.0-8.0 [facility] Comment on above: Performed By: #### U AREF #### [facility] [address] [place] [address] 18568 Protein,Urine Negative Normal Neg-Trace [facility] Comment on above: Performed By: #### U AREF #### [facility] [address] [place] [address] 90252 RBC,Urine 0-3 Normal 0-3 [facility] Comment on above: Performed By: #### U AREF #### [facility] [address] [place] [address] 49525 Specific Justice,Urine 1.016 Normal 1.010-1.025 [facility] Comment on above: Performed By: #### U AREF #### [facility] [address] [place] [address] 44247 Squamous Epithelial Cell,Urine Few Normal None-Few [facility] Comment on above: Performed By: #### U AREF #### [facility] [address] [place] [address] 51510 Urobilinogen,Urine Normal Normal Normal [facility] Comment on above: Performed By: #### U AREF #### [facility] [address] [place] [address] 54237 WBC,Urine 5-15 Abnormal 0-3 [facility] Comment on above: Performed By: #### U AREF #### [facility] [address] [place] [address] 12731 Urine Cultureon 06-11-2020 Bacteria identified Cx Nom (U) Specimen description: Clean catch midstream urine Special requests: None Culture results: [id number] cfu/mL Distal urethral/perineal leticia Report status: Final [id number] Normal [facility] Comment on above: Performed By: #### U RNC #### [place] [address] C trach/N gono/T vag Panelon 06-10-2020 C. trachomatis amp. Not Detected Normal NODT [facility] Comment on above: Performed By: #### C TGCTP #### [place] [address] Comment Optimal performance is obtained with First Catch urines. Clean catch urine samples have been shown to have reduced sensitivity for the detection of C. trachomatis, N. gonorrhoeae and T. vaginalis using the APTIMA nucleic acid amplification method. Normal [facility] Comment on above: Performed By: #### C TGCTP #### [place] [address] N. gonorrhoeae amp. Not Detected Normal NODT [facility] Comment on above: Performed By: #### C TGCTP #### [place] [address] COMMENT Optimal performance is obtained with First Catch urines. Clean catch urine samples have been shown to have reduced sensitivity for the detection of C. trachomatis, N. gonorrhoeae and T. vaginalis using the APTIMA nucleic acid amplification method. Normal [facility] Comment on above: Performed By: #### C TGCTP #### [place] [address] T. vaginalis amp. Not Detected [facility] Comment on above: Performed By: #### C TGCTP #### [place] [address] Grp A Strp rRNA GnPrbe,Throa ton 06-10-2020 Group A Strep rRNA Detection Not Detected Normal NODT [facility] C trach/N gono/T vag Panelon 06-09-2020 Specimen Description Urine Normal [facility] Comment on above: Performed By: #### C TGCTP #### [place] [address] POCT Direct Grp A Strep,Thro aton 06-09-2020 POCT Direct Grp A Strep,Throat Not Detected Normal NODT [facility] POCT HCG, Urine Qualitativeo n 06-09-2020 Beta HCG ( test) Ql (U) Negative Normal NEG [facility] Comment: First morning urine is the specimen of choice for urine test. False negative results can occur when random urine specimens are tested. A serum test is recommended if results do not correlate with the patient's clinical condition. Normal [facility] POCT Urinalysis, Strip Onlyo n 06-09-2020 Appearance (U) Cloudy Normal [facility] Bilirubin, Urine Strip Small Abnormal NEG [facility] Glucose, Urine Strip Negative Normal NEG [facility] Ketone, Urine Strip 15 mg/dL Abnormal NEG [facility] Leukocyte esterase, Ur Strip Negative Normal NEG [facility] Nitrite, Urine Strip Negative Normal NEG [facility] Occult blood, Urine Strip Large Abnormal NEG [facility] pH, Urine Strip 6.0 Normal 4.5-8.0 [facility] Protein (U) [Mass/Vol] 100 mg/dL Abnormal NEG [facility] Specific Justice, Urine Strip > or = 1.030 Normal 1.007-1.030 [facility] Specimen Color Other Normal [facility] Urobilinogen Qn (U) 1.0 Peyton U/dL Normal <1.1 [facility] SARS-CoV[facility] SARS-CoV-2, NUSRAT to [facility] SEE BELOW Normal [facility] Comment on above: Result Comment: The specimen submitted does not meet the laboratory's criteria for acceptability. Refer to [facility]'s Directory of Services for specimen acceptability criteria. Received: Media containing guanidine thiocyanate Contacted Cyn Samuel at your facility on 05/13/20. Performed at: [facility] [address] [facility], [place], [place] [id number] Rda: Magaly Mayes MD, Phone: [phone] Performed By: #### C OVID19 #### [facility] Dr. Ricardo Guerra MD [address] [place] [address] [id number] Vital Signs Date Time Vital Sign Value Performing Clinician Faci lity 04-29-2024 16:05-0400 Body height 160.02 cm [facility] 04-29-2024 16:05-0400 Body mass index (BMI) [Ratio] 24.7 kg/m2 [facility] 04-29-2024 16:05-0400 Body temperature 97.5 [degF] [facility] 04-29-2024 16:05-0400 Body weight 63.21 kg [facility] 04-29-2024 16:05-0400 Diastolic blood pressure 85 mm[Hg] [facility] 04-29-2024 16:05-0400 Heart rate 77 /min [facility] 04-29-2024 16:05-0400 Respiratory rate 16 /min [facility] 04-29-2024 16:05-0400 SaO2% (BldA) [Mass fraction] 95 % [facility] 04-29-2024 16:05-0400 Systolic blood pressure 123 mm[Hg] [facility] 02-26-2024 11:20-0400 Body height 160.02 cm [facility] 02-26-2024 11:20-0400 Body mass index (BMI) [Ratio] 24 kg/m2 [facility] 02-26-2024 11:20-0400 Body temperature 97.9 [degF] [facility] 02-26-2024 11:20-0400 Body weight 61.46 kg [facility] 02-26-2024 11:20-0400 Diastolic blood pressure 70 mm[Hg] [facility] 02-26-2024 11:20-0400 Heart rate 86 /min [facility] 02-26-2024 11:20-0400 Respiratory rate 16 /min [facility] 02-26-2024 11:20-0400 SaO2% (BldA) [Mass fraction] 99 % [facility] 02-26-2024 11:20-0400 Systolic blood pressure 112 mm[Hg] [facility] 12-07-2023 17:34-0500 Body height 160.02 cm [facility] 12-07-2023 17:34-0500 Body mass index (BMI) [Ratio] 22.5 kg/m2 [facility] 12-07-2023 17:34-0500 Body temperature 98.2 [degF] [facility] 12-07-2023 17:34-0500 Body weight 57.66 kg [facility] 12-07-2023 17:34-0500 Diastolic blood pressure 62 mm[Hg] [facility] 12-07-2023 17:34-0500 Heart rate 98 /min [facility] 12-07-2023 17:34-0500 Respiratory rate 18 /min [facility] 12-07-2023 17:34-0500 SaO2% (BldA) [Mass fraction] 98 % [facility] 12-07-2023 17:34-0500 Systolic blood pressure 108 mm[Hg] [facility] 10-22-2023 10:30-0500 Body height 160.02 cm Aishwarya Oconnellmond Other [facility] 10-22-2023 10:30-0500 Body mass index (BMI) [Ratio] 21.25 kg/m2 Aishwarya Oconnellmond Other [facility] [employer] Other 10-22-2023 10:30-0500 Body temperature 97.3 [degF] Aishwarya Oconnellmond Other [facility] [employer] Other 10-22-2023 10:30-0500 Body weight 54.43 kg Aishwarya Oconnellmond Other [facility] 10-22-2023 10:30-0500 Diastolic blood pressure 87 mm[Hg] Aishwarya Oconnellmond Other [facility] 10-22-2023 10:30-0500 Respiratory rate 16 /min Aishwarya Oconnellmond Other [facility] [employer] Other 10-22-2023 10:30-0500 SaO2% (BldA) [Mass fraction] 100 % Aishwarya Cruz Other [facility] Other 10-22-2023 10:30-0500 Systolic blood pressure 130 mm[Hg] Aishwarya Cruz Other [facility] 09-13-2022 15:56-0500 Body temperature 98.8 [degF] [facility] 09-13-2022 15:56-0500 Diastolic blood pressure 73 mm[Hg] [facility] 09-13-2022 15:56-0500 Heart rate 71 /min [facility] 09-13-2022 15:56-0500 Respiratory rate 18 /min [facility] 09-13-2022 15:56-0500 SaO2% (BldA) [Mass fraction] 96 % [facility] 09-13-2022 15:56-0500 Systolic blood pressure 116 mm[Hg] [facility] 09-13-2022 05:46-0500 Body weight 57.8 kg [facility] 09-12-2022 09:46-0500 Body height 160.02 cm [facility] 06-21-2022 20:16-0400 Body height 160.02 cm [facility] 06-21-2022 20:16-0400 Body temperature 99.1 [degF] [facility] 06-21-2022 20:16-0400 Body weight 61.23 kg [facility] 06-21-2022 20:16-0400 Diastolic blood pressure 71 mm[Hg] [facility] 06-21-2022 20:16-0400 Heart rate 90 /min [facility] 06-21-2022 20:16-0400 Respiratory rate 20 /min [facility] 06-21-2022 20:16-0400 SaO2% (BldA) [Mass fraction] 98 % [facility] 06-21-2022 20:16-0400 Systolic blood pressure 128 mm[Hg] [facility] 01-09-2021 16:00-0400 Respiratory rate 16 /min Christopher Szlag DO Work Phone: [facility] 01-09-2021 12:00-0400 Body temperature 98.1 [degF] Lupillo Johnsong DO Work Phone: [facility] 01-09-2021 12:00-0400 Diastolic blood pressure 65 mm[Hg] Malcomer Alexg DO Work Phone: [facility] 01-09-2021 12:00-0400 Heart rate 64 /min Lupillo Johnsong DO Work Phone: [facility] 01-09-2021 12:00-0400 SaO2% (BldA) [Mass fraction] 99 % Lupillo Johnsong DO Work Phone: [facility] 01-09-2021 12:00-0400 Systolic blood pressure 103 mm[Hg] Lupillo Johnsong DO Work Phone: [facility] 01-08-2021 09:25-0400 Body height 162.6 cm Lupillo Johnsong DO Work Phone: [facility] 01-08-2021 09:25-0400 Body mass index (BMI) [Ratio] 19.74 kg/m2 Lupillo East DO Work Phone: [facility] 01-08-2021 09:25-0400 Body weight 52.16 kg Lupillo East DO Work Phone: [facility] Encounters Encounter Date Encounter Type Care Provider Facility Start: 07-04-2024 End: 07-04-2024 ambulatory VJ GARNER Not Available Start: 06-19-2024 ambulatory NON STAFF Facility:[place] Start: 04-29-2024 End: 04-29-2024 ambulatory NON STAFF [facility] Work Phone: Start: 04-29-2024 End: 04-29-2024 Patient encounter procedure [facility] Work Phone: Start: 04-01-2024 Registered [facility] Start: 03-20-2024 End: 03-20-2024 ambulatory Kasandra J Steve Facility:[facility] Start: 03-20-2024 End: 03-20-2024 Lab Drop off Kasandra J Steve [facility] Start: 02-27-2024 End: 02-28-2024 ambulatory Kasandra J Steve Facility:[facility] Start: 02-27-2024 End: 02-28-2024 ambulatory Kasandra J Steve Facility:[facility] Start: 02-27-2024 End: 02-27-2024 Lab Drop off Kasandra J Steve [facility] Start: 02-27-2024 End: 02-27-2024 Patient encounter procedure Kasandra Glenroy Steve [facility] Start: 02-26-2024 End: 02-26-2024 Patient encounter procedure [facility] Work Phone: Start: 12-08-2023 End: 12-08-2023 Patient encounter procedure [facility] [place] Work Phone: Start: 12-08-2023 End: 12-08-2023 ambulatory NON STAFF [facility] Work Phone: Start: 12-07-2023 End: 12-07-2023 ambulatory NON STAFF [facility] Work Phone: Start: 12-07-2023 End: 12-07-2023 Patient encounter procedure [facility] Work Phone: Start: 10-22-2023 End: 10-22-2023 ambulatory Marcelino Maldonado Pierson Peecho Other Start: 10-22-2023 Office outpatient ne w 20 minutes Aishwarya Cruz [facility] [place] Start: 10-22-2023 End: 10-22-2023 [facility] [place] Work Phone: Start: 10-02-2023 Registered [facility] Start: 09-13-2022 ambulatory Facility:[facility] Start: 09-12-2022 ambulatory Facility:[id number] Start: 09-12-2022 End: 09-13-2022 Evaluation and management of inpatient [facility] Start: 09-12-2022 End: 09-12-[address] DOCTOR FLORES Facility:[facility] Start: 06-21-2022 End: 06-21-2022 Emergency department patient visit [facility] Start: 06-20-2022 End: 06-20-[address] DOCTOR FLORES Facility:[facility] Start: 06-03-2022 End: 06-03-2022 ambulatory MANJU GUALLPA Facility:[facility] Start: 08-25-2021 End: 08-25-2021 Emergency department patient visit LEFTY MELO [facility] Start: 01-08-2021 End: 01-09-2021 ambulatory YONATHAN WEINER [facility] Start: 01-08-2021 End: 01-09-2021 Emergency department patient visit Lupillo East DO Work Phone: [facility] 2 Procedures Date Procedure Procedure Detail Performing Clinician Start: 09-13-2022 CT angiography of thorax Start: 06-21-2022 Plain chest X-ray Start: 01-09-2021 Ecg routine ecg w/le ast 12 lds trcg only w/o i&r Kerri King CNP Work Phone: Start: 01-08-2021 Mri spinal canal cer vical w/o contrast matrl Lefty Hung PA-C Work Phone: Start: 01-08-2021 SARS-CoV-2 (COVID-19 ) RNA [Presence] in Respiratory specimen by NUSRAT with probe detection Luis Alberto Nicolas MD Work Phone: Start: 01-08-2021 Gonadotropin chorion ic qualitative Lefty Hung PA-C Work Phone: Start: 01-08-2021 INFANTE TOP Parmjit East DO Work Phone: Start: 01-08-2021 LIGHT BLUE TOP Christop her Urbano Escobarlag DO Work Phone: Start: 01-08-2021 LIGHT GREEN TOP Sergio perla East DO Work Phone: Start: 01-08-2021 PINK TOP Parmjit East DO Work Phone: Start: 01-08-2021 RAINBOW DRAW Parmjit East DO Work Phone: Start: 01-08-2021 End: 01-08-2021 Computerized tomography, limited studies External Transcribed SARS Antigen (LFIA) Plan of Treatment Date Care Activity Detail Author Start: 12-07-2023 [facility] Start: 09-13-2022 [facility] Start: 09-12-2022 Hospital admission [facility] Start: 09-12-2022 Referral to Attraction Worker [facility] Start: 09-12-2022 [facility] Start: 06-21-2022 Plain chest X-ray XR chest 1V portable [facility] Start: 06-21-2022 XR Chest Single view [facility] Work Phone: Start: 2020 Hepatitis C screening Hepatitis C Screening [facility] Start: 06-15-2020 Influenza vaccination Sequential Influenza Vaccine (#1) [facility] Start: 2018 COVID-19 Vaccine (1) COVID-19 Vaccine (1) [facility] Start: 2017 HIV screening HIV Screening [facility] Start: 2014 Depression screening using PHQ-9 (Patient Health Questionnaire 9) score Depression Screening (PHQ9) [facility] Start: 2005 History and physical examination, annual for health maintenance Wellness Visit [facility] Start: 2002 Screening for Chlamydia trachomatis [facility] Start: 2002 Tetanus vaccination Tetanus: Every 10yrs [facility] Chlamydia trachomati s DNA [Presence] in Unspecified specimen by NUSRAT with probe detection [facility] Neisseria gonorrhoea e DNA [Presence] in Unspecified specimen by NUSRAT with probe detection [facility] Patient Education [facility] Work Phone: Patient referral [facility] Work Phone: Trichomonas vaginali s DNA [Presence] in Unspecified specimen by NUSRAT with probe detection [facility] Payers Date Payer Category Payer Self-pay [id number] 2021 Unknown [id number] 2021 Unknown [employer]IME VI[employer] CRIME [id number] 2021-2021 [id number] 2018 Unknown [place] BCBS OUT OF STATE [facility] [id number] 2018-Present [id number] 2002 Unknown [id number] 2002 Unknown [id number] 2002 Unknown [id number] 2002 Unknown [id number] 2002 Unknown [id number] 2002 Unknown [id number] 2002 Unknown [id number] 2002 Unknown [id number] 2002 Unknown [id number] 2002 Unknown [id number] 1959 Unknown [id number] Unknown [id number] Unknown [id number] Social History Date Type Detail Facility Start: 01-08-2021 Tobacco smoking stat [facility] Current every day smoker [facility] Start: 01-08-2021 Cigarettes smoked current (pack per day) - Reported [facility] Start: 01-08-2021 Tobacco use and exposure Former user [facility] Start: 01-08-2021 Alcohol intake Current drinke r of alcohol (finding) [facility] Sex Assigned At Not on file [facility] Exposure to SARS-CoV -2 (event) Not sure [facility] Start: 06-21-2022 End: 09-12-2022 Tobacco smoking status VAIS Smoker (finding) [facility] Start: 2002 Sex Assigned At Female F [facility] Sex Assigned At [facility] Tobacco smoking status No Smokin g Status Entered [facility] Functional Status Date Assessment Result Facility 09-13-2022 Functional status Patient at Baseline [facility] Work Phone: Mental Status Date Assessment Result Facility 09-13-2022 Cognitive function Cognitive Sta tus Patient at Baseline [facility] Work Phone: Clinical Notes 01-08-2021 to 02-27-2024 Note Date & Type Note Facility 02-27-2024 Evaluation + Plan note Diagnostic Tests PendingAcute Hepatitis A B C Panel 02/27/24RPR with Conf Rfx 5/15/24HIV Screen 4th Generation wRfx 02/27/24 [facility] 10-22-2023 Evaluation note Encounter Date Diagnosis Assessment Notes Oct, Contact with and (suspected) exposure to other viral communicable diseases (ICD-10 - Z20.828) Oct, COVID-19 (ICD-10 - U07.1) Discharge Instructions for COVID-19 (Suspected or Confirmed ) material was printed Drink plenty fluids, get plenty of rest. Take Tylenol or Motrin as needed for aches pains or fevers. Continue home medications as prescribed. Take the prednisone as prescribed until gone for your wheezing and cough. You must quarantine for 5 days after the onset of your symptoms of COVID. Follow-up with your family physician if no improvement in 2 to 3 days Oct, Mild intermittent asthma with exacerbation (ICD-10 - J45.21) Aneumed Other 11-29-2022 History and physical note Author Magaly Guadarrama [facility] September 12, 2022 3:40pm Note Date/Time September 12, 2022 10:52am [facility] [address] [place] [address] Hospitalist H&P Signed Patient: Germania Greenwood MR#: [id number] : 2000 Acct:[id number] Age/Sex: 21 / F Adm Date: 2 Loc: Room: [address] [place] [address] Type: ADM IN Attending Dr: Magaly Guadarrama MD Copies to: NON STAFF ALBA Montenegro MD~ HPI DATE OF EXAMINATION: 09/12/22 CHIEF COMPLAINT: elevated troponin, overdose HISTORY OF PRESENT ILLNESS: Ms. Greenwood is a 21-year-old female with a past medical history of alcohol and drug abuse this is a transfer from [facility] for overdose and elevated troponins. She states she was 11 months sober prior to last night, had just gotten out of rehab. She denies taking drugs last night, does admit to drinking. She states she thinks her friends gave her something, she is unsure what that drug was. She does not remember passing out last night or this morning. She was seen and evaluated at bedside, resting comfortably in bed. She complains of chest pressure that she has had since she woke up this morning. Worsens with palpation, rates pressure 7/10, relieved with rest. She also states having difficulty taking a deep breath, respirations are even and nonlabored at this time. She states she does not know if her friends tried to do CPR. Lung sounds clear. She is a smoker, social drinker. Beer is drink of choice. The patient was found to be unresponsive on a friend's couch, friends called EMS. Per [facility] chart, cholo arrived at the scene she had an orange substance in her mouth and was unresponsive with respiratory depression. EMS medicated her with 11 mg of Narcan IM another 3 mg IV when she started to wake. She presented to the [facility] emergency room obtunded and was given another 4 mg of Narcan, 3 L bolus, Zofran for nausea and vomiting. chest x-ray was negative for acute process. Initial lactate level 8.5, alcohol 185, troponin 66.3, mild leukocytosis of 12.6. Repeat troponin 268.9, lactate 2.2. Initial EKG sinus rhythm with some ST depression, repeat EKG sinus rhythm. Dr. Guallpa spoke with Dr. Kumar and discussed case with him for transfer to [facility] for elevated troponins further evaluation and treatment. Review of Systems Review of Systems Review of systems: A 10 point review of systems was obtained, negative unless noted in the HPI or below. PMFSH Vaccinated for COVID-19?: No Medical History (Updated 09/12/22 @ 10:49 by Denisa Coleman APRN) Anxiety Depression Social History Smoking Status: Current every day smoker Tobacco Type: e-cigarettes Substance Use Type: None and Alcohol Meds Medications and Allergies Allergies cefdinir [From Omnicef] Allergy (Verified 06/21/22 20:06) Swelling Exam Physical Exam Vital Signs: Temp Pulse Resp BP Pulse Ox O2 Del Method 98.1 F 85 18 107/72 97 Room Air 09/12/22 09:46 09/12/22 09:46 09/12/22 09:46 09/12/22 09:46 09/12/22 09:46 09/12/22 10:00 Narrative: CONST- Appears well -developed and well nourished No acute distress. HEAD - Normocephalic and atraumatic EENT-Sclera nonicteric, conjunctive are non-erythemic, moist oral mucosa, pharynx clear NECK-Supple, no cervical lymphadenopathy CARDIAC-normal rate, regular rhythm, S1 & S2. PULM-diminished without wheeze or rhonchi, RA, no accessory muscle use or cough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
== END 2024-07-16 10:01 | disposition home or self-care (01) ==
LOC: EC 10:00
PROVIDERS: Visit Provider Podiatrist Foot & Ankle Surgery
DX: M79.672 Pain in left foot (principal); S92.425D Nondisplaced fracture of distal phalanx of left great toe, subsequent encounter for fracture with routine healing
CPT/HCPCS: 73630

== ENCOUNTER 2024-08-07 10:03 | Outpatient (OUT) | payer OTHER, SELFPAY ==
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
--- OUTSIDE RECORDS SUMMARY | 2024-08-07 10:12 | XMS_ITS | CCD ---
Author Organization [facility] Care Team Providers Care Vp Production Name Role Phone LEFTY MELO Attending Unavailable COLOPYDANDY Primary Care UnavailYONATHAN Castle Attending Unavailable COLOPY, DANDY OQUENDO Primary Care Unavailstephen e [facility] Consulting Brittany vailable SYSTEM, PROVIDER NOT IN Referring UnavailYONATHAN Mendez Admitting Unavailable FRANDY MARQUEZ Consulting Unavailable Colopy Dandy SIMMS Primary Care Provider NON STAFF Primary Care Provider UnavailCARYN yWnn Emergency Provider [phone] NON STAFF Primary Care Provider UnavailCARYN Wynn Emergency Provider [phone] MD Magaly Guadarrama Admit Provider [phone] MD Magaly Guadarrama Attending Provider [phone] MISC, DR HODGE Primary Care Unavailable PAY, DR NICHOLS Admitting Unavailable PAY, DR NICHOLS Attending Unavailable PAY, DR NICHOLS Consulting Unavailable MISC, DR HODGE Primary Care Unavailable MANJU GUALLPA Consulting Unavailable NICK, MANJU Admitting Unavailable MANJU GUALLPA Attending Unavailable KARMEN MOORE Consulting Unavailable NICK, MANJU Admitting Unavailable MANJU GUALLPA Attending Unavailable MISC, DR HODGE Primary Care Unavailable VELMA GUALLPAYL Consulting Unavailable Aishwarya Cruz Unavailable NON STAFF Primary Care Provider UnavailMD Panchito Hamilton Attending Provider [phone] ALBA Spence Primary Care Provider [phone] ALBA Spence Attending Provider [phone] NONE, XXXX Primary Care Physician Unavailab le Kasandra Wilson Attending Unavailable Kasandra Wilson Admitting Unavailable Kasandra Wilson Attending Unavailable Kasandra Wilson Admitting Unavailable Marcelino Maldonado Attending Unavailable Kasandra Wilson Attending Unavailable Kasandra Wilson Admitting Unavailable NON STAFF Primary Care Provider UnavailMD Panchito Hamilton Attending Provider [phone] VJ GARNER Attending Unavailable Chikis Spence Attending Unavailable Chikis Spence Primary Care Unavailable Chikis Spence Admitting Unavailable NON STAFF Primary Care Unavailable Panchito Sheffield Attending Unavailab Panchito Stack Admitting Unavailab le Allergies Allergy Classification Reported Allergen(s) Allergy Type Date of Onset Reaction(s) Facility (3 sources) Amoxicillin; Translations: [AMOXICILLIN] Drug Allergy 01-08-2021 [facility] Repository (6 sources) cefdinir; Translations: [CEFDINIR] Drug Allergy 01-08-2021 [facility] Repository (2 sources) cefdinir Drug Allergy 06-03-2022 [facility] Repository Medications Current Medications Medication Drug Class(es) [...] active, use it first for mild pain. [id number] 200 actuat albuterol 0.09 mg/actuat metered dose [...] Start: 10-22-2023 take 2 tablets by mo ut once daily at mealtime predniSONE 20 MG 2 tablets with food or milk Orally Once a day for 5 Oct, Active take 1 tablet by mela twice daily predniSONE (DELTASONE) 20 MG tablet [...] oral solution (5 sources) alpha-Adrenergic Agonist, Uncompetitive G-enfpgb-A-aspartat e Receptor Antagonist, Sigma-1 Agonist Start: 06-21-2022 [...] Ondansetron Discontinued 4 MG PO Q8H 6 December 30, 2021 12:00am September 12, 2022 [...] Name Value Interpretation Reference Range Facility PAP [id number] 03-25-2024 Cytology report Cyto stain Doc (Cvx/Vag) Note Invalid Interpretation Code [facility] Comment on above: Result Comment: TEST S RESULT FLAG UNITS REF RANGE LAB Clinician Provided Cytology Information Source.............Endocervix No. of containers..01 ThinPrep Vial DIAGNOSIS: 01 NEGATIVE FOR INTRAEPITHELIAL LESION OR MALIGNANCY. Specimen adequacy: 01 Satisfactory for evaluation. Endocervical and/or squamous metaplastic cells (endocervical component) are present. Performed by: Rogelio Mcdonnell, [place] ([facility]) . 01 Note: Note 01 [...] Low,>-Panic High,A-Abnormal,AA-Critical Abnormal Performed at: 01 [facility] [address] [place] [address] Mayelin Guido MD, Performed at: [facility] [place] [address] [place], [place] [id number] MD Lata Dick Performed By: #### 3 [id number] #### [facility] [address] [place], [place] [id number] Vaginitis/Vaginosis, DNA Pro beon 03-23-2024 Aylin sp rRNA Probe Ql (Vag fld) Negative Invalid Interpretation Code Negative [facility] Comment on above: Performed By: #### 3 [id number] #### [facility] [address] [place] [id number] G. vaginalis rRNA Probe Ql (Genital specimen) Negative Invalid Interpretation Code Negative [facility] Comment on above: Performed By: #### 3 [id number] #### [facility] [address] [place], [place] [address] T. vaginalis rRNA Probe Ql (Genital specimen) Negative Invalid Interpretation Code Negative [facility] Comment on above: Result Comment: Perf ormed at: [facility] [address] [id number] PhD Fabiola Silva Performed By: #### 3 [id number] #### [facility] [address] [place], [place] [address] PAP [id number] 03-21-2024 Collection Technique BRUSH-SPATULA Normal [facility] Comment on above: Performed By: #### 3 [id number] #### [facility] [address] [id number] Gynecological Body Site ENDOCERVIX Normal [facility] Comment on above: Performed By: #### 3 [id number] #### [facility] [address] [place], [place] [address] Physician Orderon 03-20-2024 Physician Order [id number] 2#1.00TIFF Normal [facility] Chlamydia/Gonococcus, NAAon 03-04-2024 C. trachomatis rRNA NUSRAT+probe Ql (Unsp spec) Negative Invalid Interpretation Code Negative [facility] Comment on above: Performed By: #### 1 [id number] #### [facility] [address] [place] [address] N. gonorrhoeae rRNA NUSRAT+probe Ql (Unsp spec) Negative Invalid Interpretation Code Negative [facility] Comment on above: Result Comment: Perf ormed at: = [facility] [place] [address] [facility] T[place] [id number] MD Lata Dick Performed By: #### 1 [id number] #### [facility] [address] [place] [address] .Interpretation:on HCV Ab IA Ql Comment Invalid Interpretation Code [facility] Comment on above: Result Comment: Not infected with HCV unless early or acute infection is suspected (which may be delayed in an immunocompromised individual), or other evidence exists to indicate HCV infection. Performed at: [facility] [address] [id number] PhD Fabiola Silva Performed By: #### 2 [id number] #### [facility] [address] [place] [address] Acute Hepatitis A B C Panelo n 02-29-2024 HAV IgM IA Ql Negative Invalid Interpretation Code Negative [facility] Comment on above: Performed By: #### 3 [id number] #### [facility] [address] [place] [address] HBV core IgM IA Ql Negative Invalid Interpretation Code Negative [facility] Comment on above: Performed By: #### 3 [id number] #### [facility] [address] [place] [address] HBV surface Ag IA Ql Negative Invalid Interpretation Code Negative [facility] Comment on above: Performed By: #### 3 [id number] #### [facility] [address] [place] [address] HCV IgG IA Ql Non-Reactive Invalid Interpretation Code Non Reactive [facility] Comment on above: Result Comment: Perf ormed at: [facility] [place], [place] [id number] PhD Fabiola Silva Performed By: #### 3 [id number] #### [facility] [address] [place] [address] HIV Screen 4th Generation wR fxon 02-29-2024 HIV 1+2 Ab+HIV1 p24 Ag IA Ql Non-Reactive Invalid Interpretation Code Non Reactive [facility] Comment on above: Result Comment: HIV Negative HIV-1/HIV-2 antibodies and HIV-1 p24 antigen were NOT detected. There is no laboratory evidence of HIV infection. Performed at: [facility] [address] [id number] PhD Fabiola Silva Performed By: #### 9 [id number] #### [facility] [address] [place] [address] RPR with Conf Rfxon 02-29-20 Reagin Ab RPR Ql (S) Non-Reactive Invalid Interpretation Code Non Reactive [facility] Comment on above: Result Comment: Perf ormed at: [facility] [id number] [place], [place] [id number] PhD Fabiola Silva Performed By: #### 1 [id number] #### [facility] [address] [place] [address] Consent for Treatmenton 02-12 Consent for Treatment [id number] #1.00TIFF Normal [facility] Physician Orderon 02-27-2024 Physician Order [id number] 5#1.00TIFF Normal [facility] Physician Order [id number] 6#1.00TIFF Normal [facility] Influenza virus B Ag [Presen ce] in Upper respiratory specimen by Rapid immunoassayon 02-26-2024 FLUBV Ag IA.rapid Ql (Nph) Negative [facility] No Panel Informationon 02-25 Influenza Type A (Rapid) Negative [facility] POC SARS CoV-2 Antigen Negative [facility] Chlamydia/GC/Trich NAAon Chlamydia Trachomotis, NUSRAT Negative Normal Negative [facility] Comment on above: Order Comment: SOURC E OF SPECIMEN: URINE Performed By: #### G CCHLAMTRI #### [facility] , Neisseria Gonorrhoeae, NUSRAT Negative Normal Negative [facility] Comment on above: Order Comment: SOURC E OF SPECIMEN: URINE Performed By: #### G CCHLAMTRI #### [facility] , Trichomonas NUSRAT Negative Normal Negative [facility] Comment on above: Order Comment: SOURC E OF SPECIMEN: URINE Result Comment: Perf ormed at: =G - [facility] [address] [id number] Wood [employer] Block Floor Installer: Mayelin Guido MD, Phone: [phone] PERFORMED BY: [place] [address] PATHOLOGIST SENIOR MARKETING ENGINEER JAMIE RAHMAN M.D. Performed By: #### G CCHLAMTRI #### [facility] , COVID + FLU Quick Testingon 10-22-2023 SARS-CoV-2 (COVID-19) RNA NUSRAT+probe Ql (Unsp spec) Positive [facility] [employer] Other COVID + FLU Quick Testing Negative fivesquids.co.uk [facility] [employer] Other Albumin [Mass/volume] in Ser um or PlasmaOrdered By: Magaly Guadarrama on 09-13-2022 Albumin [Mass/Vol] 3.3 g/dL 3.2-5.5 [facility] Basophils Auto (Bld) [#/Vol] Ordered By: Denisa Coleman on 09-13-2022 Basophils (Bld) [#/Vol] 0.0 10*3/uL 0.0-0.2 [facility] Basophils/100 WBC Auto (Bld) Ordered By: Denisa Coleman on 09-13-2022 Basophils/100 WBC (Bld) 0.2 % . [facility] Creatinine and Glomerular fi ltration rate.predicted panel (S/P/Bld)Ordered By: Denisa Coleman on 09-13-2022 Creatinine [Mass/Vol] 0.61 mg/dL 0.44-1.03 [facility] Direct bilirubin measurement Ordered By: Magaly Guadarrama on 09-13-2022 Bilirubin.direct [Mass/Vol] mg/dL 0.0-0.4 [facility] Eosinophils Auto (Bld) [#/Vo l]Ordered By: Denisa Coleman on 09-13-2022 Eosinophils (Bld) [#/Vol] 0.0 10*3/uL 0.0-0.45 [facility] Eosinophils/100 WBC Auto (Bl d)Ordered By: Denisa Coleman on 09-13-2022 Eosinophils/100 WBC (Bld) 0.3 % . [facility] Erythrocyte distribution wid th Auto (RBC) [Ratio]Ordered By: Denisa Coleman on 09-13-2022 Erythrocyte distribution width (RBC) [Ratio] 12.6 % 11.9-15.3 [facility] Estimated glomerular filtrat ion rate (GFR) non- AmericanOrdered By: Denisa Coleman on 09-13-2022 GFR/1.73 sq M.predicted among non-blacks MDRD (S/P/Bld) [Vol rate/Area] > 60 mL/Min [facility] Globulin Calc (S) [Mass/Vol] Ordered By: Magaly Guadarrama on 09-13-2022 Globulin (S) [Mass/Vol] 2.6 g/dL [facility] Hematocrit Auto (Bld) [Volum e fraction]Ordered By: Denisa Coleman on 09-13-2022 Hematocrit (Bld) [Volume fraction] 36.3 % 34.0-46.4 [facility] Hemoglobin [Mass/volume] in BloodOrdered By: Denisa Coleman on 09-13-2022 Hemoglobin (Bld) [Mass/Vol] 12.4 g/dL 11.8-15.4 [facility] Leukocytes [#/volume] correc leighton for nucleated erythrocytes in Blood by Automated counOrdered By: Denisa Coleman on 09-13-2022 WBC corrected for nucl RBC Auto (Bld) [#/Vol] 9.6 10*3/uL 3.8-11.6 [facility] Lymphocytes Auto (Bld) [#/Vo l]Ordered By: Denisa Coleman on 09-13-2022 Lymphocytes (Bld) [#/Vol] 3.1 10*3/uL 1.00-4.8 [facility] Lymphocytes/100 WBC Auto (Bl d)Ordered By: Denisa Coleman on 09-13-2022 Lymphocytes/100 WBC (Bld) 31.8 % . [facility] MCH Auto (RBC) [Entitic mass ]Ordered By: Denisa Coleman on 09-13-2022 MCH (RBC) [Entitic mass] 31.3 pg 24.7-34.3 [facility] MCHC Auto (RBC) [Mass/Vol]Or dered By: Denisa Coleman on 09-13-2022 MCHC (RBC) [Mass/Vol] 34.2 g/dL 32.0-35.0 [facility] MCV Auto (RBC) [Entitic vol] Ordered By: Denisa Coleman on 09-13-2022 MCV (RBC) [Entitic vol] 91.5 fL 80-100 [facility] Monocytes Auto (Bld) [#/Vol] Ordered By: Denisa Coleman on 09-13-2022 Monocytes (Bld) [#/Vol] 0.8 10*3/uL 0.0-0.8 [facility] Monocytes/100 WBC Auto (Bld) Ordered By: Denisa Coleman on 09-13-2022 Monocytes/100 WBC (Bld) 8.4 % . [facility] Neutrophils Auto (Bld) [#/Vo l]Ordered By: Denisa Coleman on 09-13-2022 Neutrophils (Bld) [#/Vol] 5.7 10*3/uL 1.8-7.7 [facility] Neutrophils/100 WBC Auto (Bl d)Ordered By: Denisa Coleman on 09-13-2022 Neutrophils/100 WBC (Bld) 59.3 % . [facility] No Panel InformationOrdered By: Denisa Coleman on 09-13-2022 Estimated GFR () > 60 mL/Min [facility] Comment on above: GFR estimated refere nce range: According to KDOQI guidelines, <60 ml/min/1.73m2 is sufficient to diagnose a patient with chronic kidney disease. Pharmacy Creatinine Clearance (Chem 122.71 [facility] Nucleated erythrocytes [Pres ence] in Blood by Automated countOrdered By: Denisa Coleman on 09-13-2022 Nucleated RBC Auto Ql (Bld) 0.2 /100{WBC} 0-0.5 [facility] Platelet mean volume Auto (B ld) [Entitic vol]Ordered By: Denisa Coleman on 09-13-2022 Platelet mean volume (Bld) [Entitic vol] 7.0 fL 6.3-10.7 [facility] Platelets Auto (Bld) [#/Vol] Ordered By: Denisa Coleman on 09-13-2022 Platelets (Bld) [#/Vol] 310 10*3/uL 150-450 [facility] Protein [Mass/volume] in Ser um or PlasmaOrdered By: Magaly Guadarrama on 09-13-2022 Protein [Mass/Vol] 5.9 g/dL 6.1-7.9 [facility] RBC Auto (Bld) [#/Vol]Ordere d By: Denisa Coleman on 09-13-2022 RBC (Bld) [#/Vol] 3.97 10*6/uL 3.60-5.00 [facility] Serum or plasma alanine penn otransferase measurement without P-5'-P (enzymatic activiOrdered By: Magaly Guadarrama on 09-13-2022 ALT No additional P-5'-P [Catalytic activity/Vol] 16 U/L 10-60 [facility] Serum or plasma albumin/glob ulin mass ratioOrdered By: Magaly Guadarrama on 09-13-2022 Albumin/Globulin [Mass ratio] 1.3 {ratio} [facility] Serum or plasma alkaline swapna sphatase measurement (enzymatic activity/volume)Ordered By: Magaly Guadarrama on 09-13-2022 ALP [Catalytic activity/Vol] 56 U/L 32-92 [facility] Serum or plasma anion gap de terminationOrdered By: Denisa Coleman on 09-13-2022 Anion gap [Moles/Vol] 8.5 mmol/L 6.0-15.0 [facility] Serum or plasma aspartate am inotransferase measurement (enzymatic activity/volume)Ordered By: Magaly Guadarrama on 09-13-2022 AST [Catalytic activity/Vol] 19 U/L 10-42 [facility] Serum or plasma calcium allison urement (mass/volume)Ordered By: Denisa Coleman on 09-13-2022 Calcium [Mass/Vol] 8.6 mg/dL 8.2-10.2 [facility] Serum or plasma chloride melvin surement (moles/volume)Ordered By: Denisa Coleman on 09-13-2022 Chloride [Moles/Vol] 107 mmol/L 95-114 [facility] Serum or plasma glucose allison urement (mass/volume)Ordered By: Denisa Coleman on 09-13-2022 Glucose [Mass/Vol] 96 mg/dL 70-100 [facility] Comment on above: ADA recommended refe rence rangeRandom Glucose Reference Range is dependent on time and content of last meal. Glucose of more than 200 mg/dL in a nonstressed, ambulatory subject supports the diagnosis of Diabetes Mellitus. Serum or plasma non-glucuron idated bilirubin measurement (mass/volume)Ordered By: Magaly Guadarrama on 09-13-2022 Bilirubin.indirect [Mass/Vol] TNP [facility] Comment on above: Test not performed Serum or plasma potassium me asurement (moles/volume)Ordered By: Denisa Coleman on 09-13-2022 Potassium [Moles/Vol] 3.3 mmol/L 3.5-5.1 [facility] Serum or plasma sodium measu rement (moles/volume)Ordered By: Denisa Coleman on 09-13-2022 Sodium [Moles/Vol] 137 mmol/L 136-146 [facility] Serum or plasma total biliru bin measurement (mass/volume)Ordered By: Magaly Guadarrama on 09-13-2022 Bilirubin [Mass/Vol] 0.7 mg/dL 0.3-1.2 [facility] Serum or plasma total carbon dioxide measurement (moles/volume)Ordered By: Denisa Coleman on 09-13-2022 CO2 [Moles/Vol] 24.8 mmol/L 22.0-30.0 [facility] Serum or plasma urea nitroge n measurement (mass/volume)Ordered By: Denisaamilcar Coleman on 09-13-2022 Urea nitrogen [Mass/Vol] 3 mg/dL 07-07 [facility] WBC Auto (Bld) [#/Vol]Ordere d By: Denisaamilcar Coleman on 09-13-2022 WBC (Bld) [#/Vol] 9.6 10*3/uL 3.8-11.6 [facility] CARDIAC MAURICE 3-6on 2 CK [Catalytic activity/Vol] 167 U/L Normal 26-192 [facility] Comment on above: Performed By: #### C MREP #### [facility] [address] [address] [address] Sylvie Vela CK.MB [Mass/Vol] 1.66 ng/mL Normal <=3.60 [facility] Comment on above: Performed By: #### C MREP #### [facility] [address] [address] [address] Sylvie Vela HSTROP 196.2 pg/mL Critically high 4.0-51.3 [facility] Comment on above: Result Comment: CUT- OFF POINTS HAVE BEEN ESTABLISHED BASED ON THE FOURTH UNIVERSAL DEFINITIONS OF MYOCARDIAL INFARCTION. THE UPPER REFERENCE LIMIT (URL) OF TROPONIN, DEFINED THE 99TH PERCENTILE OF cTnI DISTRIBUTION IN A REFERENCE POPULATION, HAS BEEN CONFIRMED THE DECISION THRESHOLD FOR CA DIAGNOSIS. Performed By: #### C MREP #### [facility] [address] [address] [address] Sylvie Vela CK [Catalytic activity/Vol] 113 U/L Normal 26-192 [facility] Comment on above: Performed By: #### C MREP #### [facility] [address] [address] [address] Sylvie Vela CK.MB [Mass/Vol] 1.37 ng/mL Normal <=3.60 [facility] Comment on above: Performed By: #### C MREP #### [facility] [address] [address] [address] Sylvie Vela HSTROP 268.9 pg/mL Critically high 4.0-51.3 [facility] Comment on above: Result Comment: CUT- OFF POINTS HAVE BEEN ESTABLISHED BASED ON THE FOURTH UNIVERSAL DEFINITIONS OF MYOCARDIAL INFARCTION. THE UPPER REFERENCE LIMIT (URL) OF TROPONIN, DEFINED THE 99TH PERCENTILE OF cTnI DISTRIBUTION IN A REFERENCE POPULATION, HAS BEEN CONFIRMED THE DECISION THRESHOLD FOR CA DIAGNOSIS. Performed By: #### C MREP #### [facility] [address] [place] [address] Dr. Sylvie Vela CARDIAC MAURICE ADMITon 022 CK [Catalytic activity/Vol] 94 U/L Normal 26-192 [facility] Comment on above: Performed By: #### C DAMIEN ESPARZA #### [facility] [address] [place] [address] Dr. Sylvie Vela CK.MB [Mass/Vol] 0.82 ng/mL Normal <=3.60 [facility] Comment on above: Performed By: #### C DAMEIN ESPARZA #### [facility] [address] [place] [address] Dr. Sylvie Vela HSTROP 66.3 pg/mL Critically high 4.0-51.3 [facility] Comment on above: Result Comment: CUT- OFF POINTS HAVE BEEN ESTABLISHED BASED ON THE FOURTH UNIVERSAL DEFINITIONS OF MYOCARDIAL INFARCTION. THE UPPER REFERENCE LIMIT (URL) OF TROPONIN, DEFINED THE 99TH PERCENTILE OF cTnI DISTRIBUTION IN A REFERENCE POPULATION, HAS BEEN CONFIRMED THE DECISION THRESHOLD FOR CA DIAGNOSIS. Performed By: #### C DAMIEN ESPARZA #### [facility] [address] [place] [address] Dr. Sylvie Vela JODI 28 ng/mL Normal 9-82 [facility] Comment on above: Performed By: #### C DAMIEN ESPARZA #### [facility] [address] [place] [address] Dr. Sylvie Vela CBC AUTO DIFFon 09-12-2022 BASO # 0.1 103/ul Normal 0.0-0.1 [facility] Comment on above: Performed By: #### C BC #### [facility] [address] [place] [address] Dr. Sylvie Vela Basophils/100 WBC (Bld) 0.4 % Normal 0.2-2.0 [facility] Comment on above: Performed By: #### C BC #### [facility] [address] [place] [address] Dr. Sylvie Vela EO # 0.0 103/ul Normal 0.0-0.7 [facility] Comment on above: Performed By: #### C BC #### [facility] [address] [place] [address] Dr. Sylvie Vela Eosinophils/100 WBC (Bld) 0.1 % Critically low 0.9-7.0 [facility] Comment on above: Performed By: #### C BC #### [facility] [address] [place] [address] Dr. Sylvie Vela Erythrocyte distribution width (RBC) [Ratio] 11.9 % Normal 11.0-15.0 [facility] Comment on above: Performed By: #### C BC #### [facility] [address] [place] [address] Dr. Sylvie Vela Hematocrit (Bld) [Volume fraction] 43.1 % Normal 36.0-48.0 [facility] Comment on above: Performed By: #### C BC #### [facility] [address] [place] [address] Dr. Sylvie Vela Hemoglobin (Bld) [Mass/Vol] 14.5 g/dL Normal 12.0-16.0 [facility] Comment on above: Performed By: #### C BC #### [facility] [address] [place] [address] Dr. Sylvie Vela IG # 0.09 10e3/ul Critically high 0.00-0.03 [facility] Comment on above: Performed By: #### C BC #### [facility] [address] [place] [address] Dr. Sylvie Vela IG % 0.7 % Critically high 0.0-0.5 [facility] Comment on above: Performed By: #### C BC #### [facility] [address] [place] [address] Dr. Sylvie Vela LYMPH # 3.9 103/ul Critically high 1.2-3.8 [facility] Comment on above: Performed By: #### C BC #### [facility] [address] [place] [address] Dr. Sylvie Vela Lymphocytes/100 WBC (Bld) 31.0 % Normal 20.5-60.0 [facility] Comment on above: Performed By: #### C BC #### [facility] [address] [place] [address] Dr. Sylvie Vela MANUAL DIFF REQ NO Normal [facility] Comment on above: Performed By: #### C BC #### [facility] [address] [place] [address] Dr. Sylvie Vela MCH (RBC) [Entitic mass] 30.9 pg Normal 26.7-34.0 [facility] Comment on above: Performed By: #### C BC #### [facility] [address] [place] [address] Dr. Sylvie Vela MCHC (RBC) [Mass/Vol] 33.6 g/dL Normal 29.9-35.2 [facility] Comment on above: Performed By: #### C BC #### [facility] [address] [place] [address] Dr. Sylvie Vela MCV (RBC) [Entitic vol] 91.9 fL Normal 81.0-99.0 [facility] Comment on above: Performed By: #### C BC #### [facility] [address] [place] [address] Dr. Sylvie Vela MONO # 0.4 103/ul Normal 0.3-0.8 [facility] Comment on above: Performed By: #### C BC #### [facility] [address] [place] [address] Dr. Sylvie Vela Monocytes/100 WBC (Bld) 3.4 % Normal 1.7-12.0 [facility] Comment on above: Performed By: #### C BC #### [facility] [address] [place] [address] Dr. Sylvie Vela NEUT # 8.1 103/ul Critically high 1.4-6.5 [facility] Comment on above: Performed By: #### C BC #### [facility] [address] [place] [address] Dr. Sylvie Vela Neutrophils/100 WBC (Bld) 64.4 % Normal 43.0-75.0 [facility] Comment on above: Performed By: #### C BC #### [facility] [address] [place] [address] Dr. Sylvie Vela Platelet mean volume (Bld) [Entitic vol] 10.4 fL Normal 9.5-13.5 [facility] Comment on above: Performed By: #### C BC #### [facility] [address] [place] [address] Dr. Sylvie Vela PLT 65 103/ul Critically low 150-450 [facility] Comment on above: Performed By: #### C BC #### [facility] [address] [place] [address] Dr. Sylvie Vela RBC 4.69 106/ul Normal 4.20-5.40 [facility] Comment on above: Performed By: #### C BC #### [facility] [address] [place] [address] Dr. Sylvie Vela WBC 12.6 103/ul Critically high 4.0-11.0 [facility] Comment on above: Performed By: #### C BC #### [facility] [address] [place] [address] Dr. Sylvie Vela DRUG SCREEN RAPID (URINE)on 09-12-2022 AMP Negative Normal NEGATIVE [facility] Comment on above: Performed By: #### D RUGRPD #### [facility] [address] [place] [address] Dr. Sylvie Vela BAR Negative Normal NEGATIVE [facility] Comment on above: Performed By: #### D RUGRPD #### [facility] [address] [place] [address] Dr. Sylvie Vela BUP Negative Normal NEGATIVE [facility] Comment on above: Performed By: #### D RUGRPD #### [facility] [address] [place] [address] Dr. Sylvie Vela BZO Negative Normal NEGATIVE [facility] Comment on above: Performed By: #### D RUGRPD #### [facility] [address] [place] [address] Dr. Sylvie Vela RADHA Negative Normal NEGATIVE [facility] Comment on above: Performed By: #### D RUGRPD #### [facility] [address] [place] [address] Dr. Sylvie Vela CUT-OFFS SEE BELOW Normal [facility] Comment on above: Result Comment: AMP (Amphetamine): 500ng/mL, BAR (Barbituates): 200 ng/mL, BZO (Benzodiazepines): 150 ng/mL, BUP (Buprenorphine): 10 ng/mL, RADHA (Cocaine): 150 ng/mL, mAMP (Methamphetamine): 500 ng/mL, MTD (Methadone): 200 ng/mL, OPI (Opiates): 100 ng/mL, OXY (Oxycodone): 100 ng/mL, PCP (Phencyclidine): 25 ng/mL, PPX (Propoxyphene): 300 ng/mL, THC (Cannabinoids): 50 ng/mL, TCA (Trycyclic Antidepressants): 300 ng/mL Performed By: #### D RUGRPD #### [facility] [address] [place] [address] Dr. Sylvie Vela DRUG CUT HEADER DRUG CLASS TEST SYSTEM CUT-OFF CONCENTRATIONS ARE FOLLOWS: Normal [facility] Comment on above: Performed By: #### D RUGRPD #### [facility] [address] [place] [address] Dr. Sylvie Vela mAMP Negative Normal NEGATIVE [facility] Comment on above: Performed By: #### D RUGRPD #### [facility] [address] [place] [address] Dr. Sylvie Vela MTD Negative Normal NEGATIVE [facility] Comment on above: Performed By: #### D RUGRPD #### [facility] [address] [place] [address] Dr. Sylvie Vela OPI Negative Normal NEGATIVE [facility] Comment on above: Performed By: #### D RUGRPD #### [facility] [address] [address] [address] Sylvie Vela OXY Negative Normal NEGATIVE [facility] Comment on above: Performed By: #### D RUGRPD #### [facility] [address] [address] [address] Sylvie Vela PCP Negative Normal NEGATIVE [facility] Comment on above: Performed By: #### D RUGRPD #### [facility] [address] [address] [address] Sylvie Vela PPX Negative Normal NEGATIVE [facility] Comment on above: Performed By: #### D RUGRPD #### [facility] [address] [place] [address] Dr. Sylvie Vela TCA Negative Normal NEGATIVE [facility] Comment on above: Performed By: #### D RUGRPD #### [facility] [address] [place] [address] Dr. Sylvie Vela THC Negative Normal NEGATIVE [facility] Comment on above: Performed By: #### D RUGRPD #### [facility] [address] [place] [address] Dr. Sylvie Vela ETHANOL (BLD ALC)on 09-12-20 22 ALC NOTE NOTE: 80 mg/dl is the legal limit for a blood alcohol level Normal [facility] Comment on above: Performed By: #### C MIGNON ESPARZADM #### [facility] [address] [place] [address] Dr. Sylvie Vela Ethanol [Mass/Vol] 185 mg/dL Normal [facility] Comment on above: Performed By: #### C ISAIAS CMADM #### [facility] [address] [place] [address] Dr. Sylvie Vela LACTATE/LACTIC ACIDon 2021 Lactate [Moles/Vol] 2.2 mmol/L Critically high 0.4-1.9 [facility] Comment on above: Performed By: #### C ISAIAS CMADM #### [facility] [address] [place] [address] Dr. Sylvie Vela Lactate [Moles/Vol] 8.5 mmol/L Critically high 0.4-1.9 [facility] Comment on above: Performed By: #### C DAMIEN ESPARZA #### [facility] [address] [address] [address] Sylvie Vela Laboratory - Chemistry and C hemistry - challengeOrdered By: Magaly Guadarrama on 09-12-2022 Natriuretic peptide B (Bld) [Mass/Vol] 99.0 pg/mL 5-100 [facility] Magnesium [Mass/Vol] 1.7 mg/dL 1.6-2.6 [facility] No Panel InformationOrdered By: Magaly Guadarrama on 09-12-2022 D-Dimer Quantitative (PE/DVT) 686 ng/mL 0-243 [facility] Comment on above: The reference range [...] 09-12-2022 , QUAL Negative Normal NEGATIVE [facility] Comment on above: Performed By: #### C DAMIEN ESPARZA #### [facility] [address] [address] [address] Sylvie Vela PROF 14(COMP METB)on 022 Albumin [Mass/Vol] 4.4 g/dL Normal 3.4-5.0 [facility] Comment on above: Performed By: #### C DAMIEN ESPARZA #### [facility] [address] [address] [address] Sylvie Vela Albumin/Globulin [Mass ratio] 1.0 {ratio} Normal [facility] Comment on above: Performed By: #### C DAMIEN ESPARZA #### [facility] [address] [address] [address] Sylvie Vela ALP [Catalytic activity/Vol] 114 U/L Normal 46-116 [facility] Comment on above: Performed By: #### C ISAIAS, CMADM #### [facility] [address] [address] [address] Sylvie Vela ALT [Catalytic activity/Vol] 24 U/L Normal 14-59 [facility] Comment on above: Performed By: #### C ISAIAS, CMADM #### [facility] [address] [address] [address] Sylvie Vela Anion gap [Moles/Vol] 21.7 mmol/L Normal [facility] Comment on above: Performed By: #### C ISAIAS, CMADM #### [facility] [address] [place] [address] Dr. Sylvie Vela AST [Catalytic activity/Vol] 45 U/L Critically high 15-37 [facility] Comment on above: Performed By: #### C ISAIAS, CMADM #### [facility] [address] [place] [address] Dr. Sylvie Vela Bilirubin [Mass/Vol] 0.3 mg/dL Normal 0.2-1.0 [facility] Comment on above: Performed By: #### C ISAIAS, CMADM #### [facility] [address] [place] [address] Dr. Sylvie Vela Calcium [Mass/Vol] 8.7 mg/dL Normal 8.5-10.1 [facility] Comment on above: Performed By: #### C ISAIAS, CMADM #### [facility] [address] [place] [address] Dr. Sylvie Vela Chloride [Moles/Vol] 98 mmol/L Normal 98-107 [facility] Comment on above: Performed By: #### C ISAIAS, CMADM #### [facility] [address] [address] [address] Sylvie Vela CO2 [Moles/Vol] 20.8 mmol/L Critically low 21.0-32.0 [facility] Comment on above: Performed By: #### C ISAIAS, CMADM #### [facility] [address] [address] [address] Sylvie Vela Creatinine [Mass/Vol] 1.16 mg/dL Critically high 0.55-1.02 [facility] Comment on above: Performed By: #### C MP, CMADM #### [facility] [address] [address] [address] Sylvie Vela EGFR-AF IRANIAN >60 Normal >=60 [facility] Comment on above: Performed By: #### C MP, CMADM #### [facility] [address] [address] [address] Sylvie Vela EGFR-NON AF IRANIAN 60 mL/min/1.73m2 Normal >=60 [facility] Comment on above: Performed By: #### C MP, CMADM #### [facility] [address] [address] [address] Sylvie Vela Globulin (S) [Mass/Vol] 4.2 g/dL Normal [facility] Comment on above: Performed By: #### C MP, CMADM #### [facility] [address] [address] [address] Sylvie Vela Glucose [Mass/Vol] 367 mg/dL Critically high 74-106 [facility] Comment on above: Performed By: #### C ISAIAS, CMADM #### [facility] [address] [address] [address] Sylvie Vela Potassium [Moles/Vol] 4.5 mmol/L Normal 3.5-5.1 [facility] Comment on above: Performed By: #### C MP, CMADM #### [facility] [address] [address] [address] Sylvie Vela Protein [Mass/Vol] 8.6 g/dL Critically high 6.4-8.2 [facility] Comment on above: Performed By: #### C MP, CMADM #### [facility] [address] [address] [address] Sylvie Vela Sodium [Moles/Vol] 136 mmol/L Normal 136-145 [facility] Comment on above: Performed By: #### C MP, CMADM #### [facility] [address] [place], [place] [address] Dr. Sylvie Vela Urea nitrogen [Mass/Vol] 9.0 mg/dL Normal 6.4-19.3 [facility] Comment on above: Performed By: #### C ISAIAS, CMADM #### [facility] [address] [place], [place] [address] Dr. Sylvie Vela Urea nitrogen/Creatinine [Mass ratio] 7.8 mg/mg Normal [facility] Comment on above: Performed By: #### C ISAIAS, CMADM #### [facility] [address] [place], [place] [address] Dr. Sylvie Vela Troponin I.cardiac [Mass/vol ume] in Serum or Plasma by High sensitivity methodOrdered By: Denisa Coleman on 09-12-2022 Troponin I.cardiac High sensitivity method [Mass/Vol] 28 pg/mL 0-15 [facility] Urine lactic acid measuremen tOrdered By: Denisa Coleman on 09-12-2022 Lactate (U) [Moles/Vol] 1.0 mmol/L 0.5-2.2 [facility] XR CHEST 1 Von 09-12-2022 XR CHEST [...] KARMEN MOORE Date: 2022-09-12 00:59 Normal [facility] COVID-19 SOFIAOrdered By: Tung Carney on 06-21-2022 SARS-CoV+SARS-CoV-2 (COVID-19) Ag IA.rapid Ql (Resp) Negative Negative [facility] Comment on above: This is a duplicate Ruma SARS Antigen (ALFREDO) result to be used for statistical tracking purpose only. No Panel InformationOrdered By: Hien Carney on 06-21-2022 SARS Antigen (LFIA) [facility] Covid-19 PCR (CVDTBH)on SARS-CoV-2 (COVID-19) RNA NUSRAT+probe Ql (Unsp spec) Not detected Normal NOT DETECTED [facility] Comment on above: Result Comment: This test is not yet approved or cleared by the [place] FDA. When there are no FDA-approved or cleared tests available, and other criteria are met, FDA can make tests available under an emergency access mechanism called an Emergency Use Authorization (EUA). The EUA for this test is supported by the [place] Inspector of Health and Human Service's (HHS's) declaration [...] Performed By: #### C ISAIAS, CMADM #### [facility] [address] [place] [address] Dr. Sylvie Vela GROUP A STREP CULTUREon S. pyogenes Ag Ql (Unsp spec) Culture Observations: NEGATIVE FOR GROUP A STREPTOCOCCUS. Normal [facility] Comment on above: Performed By: #### S ANNA GRASTCX #### [facility] [address] [place] [address] Dr. Sylvie Vela STREPT SCREENon 06-20-2022 STREP SCREEN A Negative Normal NEGATIVE [facility] Comment on above: Performed By: #### S SCRN, GRASTCX #### [facility] [address] [place] [address] Dr. Sylvie Vela CULTURE URINEon 06-03-2022 CULTURE URINE Culture Observations: MODERATE GROWTH OF MIXED GENITAL LETICIA. NO POTENTIAL PATHOGENS SEEN. Normal [facility] Comment on above: Performed By: #### C ISAIAS, CMADM #### [facility] [address] [place] [address] Dr. Sylvie Vela ER URINE PROFILEon 2 Bilirubin Ql (U) Negative Normal NEGATIVE [facility] Comment on above: Performed By: #### Anand PEREZ UMICRO #### [facility] [address] [place] [address] Dr. Sylvie Vela Clarity (U) CLEAR Normal CLEAR [facility] Comment on above: Performed By: #### Anand PEREZ UMICRO #### [facility] [address] [place] [address] Dr. Sylvie Vela Color (U) LT. YELLOW Normal YELLOW [facility] Comment on above: Performed By: #### Anand PEREZ UMICRO #### [facility] [address] [place] [address] Dr. Sylvie WORLEY A micrscopic examination will be performed if indicated. Normal [facility] Comment on above: Performed By: #### Anand PEREZ UMICRO #### [facility] [address] [place] [address] Dr. Sylvie Vela Glucose Ql (U) Negative Normal NEGATIVE [facility] Comment on above: Performed By: #### Anand PEREZ UMICRO #### [facility] [address] [place] [address] Dr. Sylvie Vela Hemoglobin Ql (U) MODERATE Abnormal NEGATIVE [facility] Comment on above: Performed By: #### Anand PEREZ UMICRO #### [facility] [address] [place] [address] Dr. Sylvie Vela Ketones Ql (U) TRACE Abnormal NEGATIVE [facility] Comment on above: Performed By: #### Anand PEREZ UMICRO #### [facility] [address] [place] [address] Dr. Sylvie Vela LEUKOCYTES SMALL Abnormal NEGATIVE [facility] Comment on above: Performed By: #### Anand PEREZ UMICRO #### [facility] [address] [place] [address] Dr. Sylvie Vela Nitrite Ql (U) Negative Normal NEGATIVE [facility] Comment on above: Performed By: #### Anand RUR, UMICRO #### [facility] [address] [place] [address] Dr. Sylvie Vela pH (U) 5.5 [pH] Normal 5-9 [facility] Comment on above: Performed By: #### Anand PEREZ UMICRO #### [facility] [address] [place] [address] Dr. Sylvie Vela SPEC GRAVITY >=1.030 Abnormal 1.005-<=1.0 25 [facility] Comment on above: Performed By: #### Anand PEREZ UMICRO #### [facility] [address] [place] [address] Dr. Sylvie Vela UA PROTEIN Negative Normal NEGATIVE/ TRACE [facility] Comment on above: Performed By: #### JESIKA LOYAICRO #### [facility] [address] [place] [address] Dr. Sylvie Vela UR MICRO IND INDICATED Normal [facility] Comment on above: Performed By: #### ROMAINE LOYARO #### [facility] [address] [place] [address] Dr. Sylvie Vela Urobilinogen Qn (U) 0.2 {Peyton'U}/dL Normal 0.2 - 1. 0 [facility] Comment on above: Performed By: #### Anand PEREZ UMICRO #### [facility] [address] [place] [address] Dr. Sylvie Vela URINE MICROSCOPIC ONLYon BACTERIA TRACE Abnormal NONE SEEN [facility] Comment on above: Performed By: #### Anand PEREZ UMICRO #### [facility] [address] [place] [address] Dr. Sylvie Vela Bacteria identified Cx Nom (U) INDICATED Normal [facility] Comment on above: Performed By: #### ROMAINE LOYARO #### [facility] [address] [place] [address] Dr. Sylvie Vela CAST NONE SEEN Normal NONE SEEN [facility] Comment on above: Performed By: #### ROMAINE LOYARO #### [facility] [address] [place] [address] Dr. Sylvie Vela Crystals LM Nom (Urine sed) NONE SEEN Normal NONE SEEN [facility] Comment on above: Performed By: #### E RUR UMICRO #### [facility] [address] [place] [address] Dr. Sylvie Vela Epithelial cells LM Ql (Urine sed) RARE Normal NONE SEEN /RARE [facility] Comment on above: Performed By: #### E RUR, UMICRO #### [facility] [address] [place] [address] Dr. Sylvie Vela MUCOUS NONE SEEN Normal NONE SEEN [facility] Comment on above: Performed By: #### E RUR UMICRO #### [facility] [address] [place] [address] Dr. Sylvie Vela RBC 2-5 Abnormal 0-2 [facility] Comment on above: Performed By: #### Anand PEREZ UMICRO #### [facility] [address] [place] [address] Dr. Sylvie Vela WBC 10-20 Abnormal NONE SEEN [facility] Comment on above: Performed By: #### E JANER, UMICRO #### [facility] [address] [place] [address] Dr. Sylvie Vela Culture,Throaton 08-08-2021 Culture,Throat O:STREPA: [...] 1.1) performed upon request. (OrganismID: [id number]) Normal [facility] Comment on above: Performed By: #### U AREF #### [facility] [address] [place] [address] C.trach N.gonorrhoea DNA Pak Uon 05-16-2021 Chlamydia Trachomatis DNA Ur Not detected Normal Not Detect [facility] Comment on above: Result Comment: Chla mydia trachomatis DNA not detected by real-time PCR. Specimen source- [place] Urine Performed By: #### U AREF #### [facility] [address] [place] [address] Neisseria Gonorrhoeae DNA, Ur Not detected Normal Not Detect [facility] Comment on above: Result Comment: Neis seria gonorrhoeae DNA not detected by real-time PCR. Specimen source- [place] Urine Performed By: #### U AREF #### [facility] [address] [place] [id number] Vaginosis Panelon 02-27-2021 Aylin DNA Not detected Normal Not Detect [facility] Comment on above: Result Comment: Test ing performed by DNA probe. Specimen source: Vaginal and/or Endocervical Performed By: #### U PREG #### [facility] [address] [place] [id number] Gardnerella DNA Not detected Normal Not Detect [facility] Comment on above: Result Comment: Test ing performed by DNA probe. Specimen source: Vaginal and/or Endocervical Performed By: #### U PREG #### [facility] [address] [place] [id number] Trichomonas DNA Not detected Normal Not Detect [facility] Comment on above: Result Comment: Test ing performed by DNA probe. Specimen source: Vaginal and/or Endocervical Performed By: #### U PREG #### [facility] [address] [place] [id number] ECG 12-LEADOrdered By: Kerri King on 01-09-2021 Atrial Rate 48 BPM [facility] P [place] 57 degrees [facility] P-R Interval 104 ms [facility] Q-T Interval 450 ms [facility] QRS Duration 82 ms [facility] QTC Calculation (Bezet) 402 ms [facility] R [place] 77 degrees [facility] T [place] 65 degrees [facility] Ventricular Rate 48 BPM [facility] bradycardia with sinus arrhythmia Confirmed by ROCK RAO MD ([id number]) on 01/09/2021 10:10:20 AM [facility] Acetaminophenon 01-08-2021 Acetaminophen [Mass/Vol] ug/mL Low 10-20 [facility] Comment on above: Performed By: #### H EPATIC, BMP, ACET, ETOH, MANUELA #### [facility] [address] [place] [address]654 Basic Metabolic Panelon 12-14 Calcium [Mass/Vol] 9.0 mg/dL Normal 8.6-10.3 [facility] Comment on above: Performed By: #### H EPATIC, BMP, ACET, ETOH, MANUELA #### [facility] [address] [place] [address]698 Chloride [Moles/Vol] 108 mmol/L High 98-107 [facility] Comment on above: Performed By: #### H EPATIC, BMP, ACET, ETOH, MANUELA #### [facility] [address] [place] [address] 19177 CO2 [Moles/Vol] 24 mmol/L Normal 23-29 [facility] Comment on above: Performed By: #### H EPATIC, BMP, ACET, ETOH, MANUELA #### [facility] [address] [place] [address]59 Creatinine [Mass/Vol] 0.55 mg/dL Low 0.60-1.20 [facility] Comment on above: Performed By: #### H EPATIC, BMP, ACET, ETOH, MANUELA #### [facility] [address] [place] [address] 64704 eGFR For Americans > 60 Normal [facility] Comment on above: Performed By: #### H EPATIC, BMP, ACET, ETOH, MANUELA #### [facility] [address] [place] [address] 97853 eGFR For Non- Americans > 60 Normal [facility] Comment on above: Performed By: #### H EPATIC, BMP, ACET, ETOH, MANUELA #### [facility] [address] [place] [address] 21458 Glucose [Mass/Vol] 113 mg/dL High 70-105 [facility] Comment on above: Performed By: #### H EPATIC, BMP, ACET, ETOH, MANUELA #### [facility] [address] [place] [address] 44946 Osmolality,Calculated 293 Normal 280-300 [facility] Comment on above: Performed By: #### H EPATIC, BMP, ACET, ETOH, MANUELA #### [facility] [address] [place] [address] 76805 Potassium [Moles/Vol] 3.6 mmol/L Normal 3.5-5.1 [facility] Comment on above: Performed By: #### H EPATIC, BMP, ACET, ETOH, MANUELA #### [facility] [address] [place] [address] 84423 Sodium [Moles/Vol] 142 mmol/L Normal 136-145 [facility] Comment on above: Performed By: #### H EPATIC, BMP, ACET, ETOH, MANUELA #### [facility] [address] [place] [address] [phone] Urea nitrogen [Mass/Vol] 7 mg/dL Normal 6-20 [facility] Comment on above: Performed By: #### H EPATIC, BMP, ACET, ETOH, MANUELA #### [facility] [address] [place] [address] 08353 Urea nitrogen/Creatinine [Mass ratio] 13 mg/mg Normal 6-26 [facility] Comment on above: Performed By: #### H EPATIC, BMP, ACET, ETOH, MANUELA #### [facility] [address] [place] [address] 94899 Beta HCG ( test) Ql Ordered By: Lefty Hung on 01-08-2021 Interpretation and review of laboratory results Normal [facility] Negative: The result is less than or equal to 5 mIU/mL of HCG. [facility] CBC panel Auto (Bld)Ordered By: Lefty Hung on 01-08-2021 Erythrocyte distribution width (RBC) [Entitic vol] 12.8 % 11.6 - 14.8 % [facility] Hematocrit (Bld) [Volume fraction] 39.8 % 36.0 - 46.0 % [facility] Hemoglobin (Bld) [Mass/Vol] 13.4 g/dL 12.0 - 16.0 g/dL [facility] Interpretation and review of laboratory results Abnormal [facility] MCH (RBC) [Entitic mass] 31.4 pg 25.0 - 35.0 pg [facility] MCHC (RBC) [Mass/Vol] 33.7 g/dL 31.0 - 37.0 g/dL [facility] MCV (RBC) [Entitic vol] 93.2 fL 78.0 - 102.0 fL [facility] Nucleated RBC (Bld) [#/Vol] 0.00 10*3/uL [facility] Nucleated RBC/100 WBC (Bld) [Ratio] 0.0 % [facility] Platelet mean volume (Bld) [Entitic vol] 9.0 fL Low 9.4 - 12.4 fL [facility] Platelets (Bld) [#/Vol] 319 10*3/uL [facility] RBC (Bld) [#/Vol] 4.27 10*6/uL [facility] WBC (Bld) [#/Vol] 11.09 10*3/uL [facility] COVID-19/INFLUENZA A,B MOLEC ULARon 01-08-2021 SARS-CoV-2 (COVID-19) Ab IA Ql SARS-COV-2 (GAMALIEL): Not Detected INFLUENZA A (GAMALIEL): Not Detected INFLUENZA B (GAMALIEL): Not Detected Normal Not Detected [facility] Comment on above: Order Comment: This test [...] at the following links: For Healthcare Providers: https://www.fda.gov/media/344378/download For Patients: https://www.fda.gov/media/987332/download Performed By: #### L [id number] #### [facility] [address] Yves Short M.D. [id number] COVID-19/Influenza A,B Molec ularOrdered By: Luis Alberto Nicolas on 01-08-2021 SARS-CoV-2 (COVID-19) RNA NUSRAT+probe Ql (Resp) Not detected Not Detected [facility] CT COMPARISON IMPORTOrdered By: Provider System on 01-08-2021 This order has been auto-finalized and does not contain a result. [facility] This order has been auto-finalized and does not contain a result. [facility] This order has been auto-finalized and does not contain a result. [facility] Complete Blood Count with Di ffon 01-08-2021 Basophils (Bld) [#/Vol] 0.0 10*3/uL Normal 0.0-0.2 [facility] Comment on above: Performed By: #### U PREG #### [facility] [address] [place] [address] Basophils/100 WBC (Bld) 0.3 % Normal [facility] Comment on above: Performed By: #### U PREG #### [facility] [address] [place] [address] Eosinophils (Bld) [#/Vol] 0.0 10*3/uL Normal 0.0-0.6 [facility] Comment on above: Performed By: #### U PREG #### [facility] [address] [place] [address] Eosinophils/100 WBC (Bld) 0.2 % Normal [facility] Comment on above: Performed By: #### U PREG #### [facility] [address] [place] [address] Erythrocyte distribution width (RBC) [Ratio] 12.2 % Normal 11.5-14.5 [facility] Comment on above: Performed By: #### U PREG #### [facility] [address] [place] [address] 18433 Hematocrit (Bld) [Volume fraction] 40.7 % Normal 35.3-44.9 [facility] Comment on above: Performed By: #### U PREG #### [facility] [address] [place] [address] 69141 Hemoglobin (Bld) [Mass/Vol] 13.4 g/dL Normal 11.5-15.4 [facility] Comment on above: Performed By: #### U PREG #### [facility] [address] [place] [address] 84109 Immature granulocytes/100 WBC (Bld) 0.5 % Normal 0-4 [facility] Comment on above: Performed By: #### U PREG #### [facility] [address] [place] [address] 68228 Lymphocytes (Bld) [#/Vol] 2.2 10*3/uL Normal 0.6-4.6 [facility] Comment on above: Performed By: #### U PREG #### [facility] [address] [place] [address] 99497 Lymphocytes/100 WBC (Bld) 20.8 % Normal [facility] Comment on above: Performed By: #### U PREG #### [facility] [address] [place] [address] 15046 MCH (RBC) [Entitic mass] 30.8 pg Normal 28.0-33.3 [facility] Comment on above: Performed By: #### U PREG #### [facility] [address] [place] [address] 35940 MCV (RBC) [Entitic vol] 93.6 fL Normal 83.0-100.0 [facility] Comment on above: Performed By: #### U PREG #### [facility] [address] [place] [address] 02543 Mean Corpuscular HGB Conc 32.9 g/dL Normal 31.6-35.5 [facility] Comment on above: Performed By: #### U PREG #### [facility] [address] [place] [address] 56216 Monocytes (Bld) [#/Vol] 0.7 10*3/uL Normal 0.0-1.3 [facility] Comment on above: Performed By: #### U PREG #### [facility] [address] [place] [address] 24217 Monocytes/100 WBC (Bld) 6.3 % Normal [facility] Comment on above: Performed By: #### U PREG #### [facility] [address] [place] [address] 18486 Neutrophils (Bld) [#/Vol] 7.6 10*3/uL Normal 1.6-8.9 [facility] Comment on above: Performed By: #### U PREG #### [facility] [address] [place] [address] 54721 Platelet mean volume (Bld) [Entitic vol] 8.9 fL Low 9.4-12.4 [facility] Comment on above: Performed By: #### U PREG #### [facility] [address] [place] [address] 95536 Platelets (Bld) [#/Vol] 316 10*3/uL Normal 140-400 [facility] Comment on above: Performed By: #### U PREG #### [facility] [address] [place] [address] 74642 RBC (Bld) [#/Vol] 4.35 10*6/uL Normal 3.82-4.97 [facility] Comment on above: Performed By: #### U PREG #### [facility] [address] [place] [address] 38379 Segmented neutrophils/100 WBC (Bld) 71.9 % Normal [facility] Comment on above: Performed By: #### U PREG #### [facility] [address] [place] [address] 02946 WBC (Bld) [#/Vol] 10.6 10*3/uL Normal 4.3-11.1 [facility] Comment on above: Performed By: #### U PREG #### [facility] [address] [place] [address] 20349 Drug Screen, Urineon 021 Amphetamine Screen,Urine Negative Normal Pxpico=8133 [facility] Comment on above: Performed By: #### U AREF #### [facility] [address] [place] [address] 45532 Barbiturate Screen,Urine Negative Normal Lxdqaw=341 [facility] Comment on above: Performed By: #### U AREF #### [facility] [address] [place] [address] 20569 Benzodiazepines Screen,Urine Negative Normal Zqptch=962 [facility] Comment on above: Performed By: #### U AREF #### [facility] [address] [place] [address] 60612 Buprenorphine Screen,Urine Negative Normal Cutoff=5 [facility] Comment on above: Performed By: #### U AREF #### [facility] [address] [place] [address] 62726 Cannabinoid Screen,Urine Positive Abnormal Cutoff = 50 [facility] Comment on above: Result Comment: Unco nfirmed presumptive positive. Refer to Urine Drug Screen Interpretation result for interpretative guidelines. Performed By: #### U AREF #### [facility] [address] [place] [address] 86428 Cocaine Screen,Urine Negative Normal Cutoff= 300 [facility] Comment on above: Performed By: #### U AREF #### [facility] [address] [place] [address] [id number] Opiate Screen,Urine Negative Normal Whjwsi=906 [facility] Comment on above: Performed By: #### U AREF #### [facility] [address] [place] [address] 45601 Phencyclidine Screen,Urine Negative Normal Cutoff=25 [facility] Comment on above: Performed By: #### U AREF #### [facility] [address] [place] [address] [id number] Ur. Drug Screen Interpretation See Below Normal [facility] Comment on above: Result Comment: This is [...] request. Performed By: #### U AREF #### [facility] [address] [place] [address] 45601 Emergency Documentationon Emergency Documentation [address] [address] Emergency Department Note Signed PRELIMINARY DRAFT REPORT UNTIL ELECTRONICALLY SIGNED PATIENT: Arie Greenwood MR#: [id number] : 2000 AGE/SEX: 20 / F ADMITTED: [...] Rate 94 01/08/21 01:33 Respiratory Rate 18 03/27/21 01:33 Blood Pressure 125/81 03/27/21 01:33 O2 Sat by Pulse Oximetry 99 [...] sntnd, nonperitoneal. No ecchymosis. Neuro exam nonfocal. [place] slip completed. Given intoxication, will scan head, [...] for evaluation of ligamentous injury. Notified by stage technician that the MRI machine went down as preparing to scan patient. Anticipates it will not be repaired today. Planned for transfer to [facility]. D/w trauma service. Accepting phsbrian, Dr. Underwood. Pt transferred without incident. - Me (more content not included)... Normal [facility] Ethanolon 01-08-2021 Ethanol [Mass/Vol] 171 mg/dL High Less than 10 [facility] Comment on above: Performed By: #### H EPATIC, BMP, ACET, ETOH, MANUELA #### [facility] [address] [place] [address] 54402 FACEWOon 01-08-2021 [address] [place] [id number] Cat Scan Report Signed PRELIMINARY DRAFT REPORT UNTIL ELECTRONICALLY SIGNED PATIENT: Arie Greenwood MR#: [id number] : 2000 AGE/SEX: 20 / F ADMITTED: 01/08/21 OUTSIDE LOCN: LOCATION: [facility] ATTENDING: ORDER PHYSICIAN: Dandy Orozco DO BIRAD: DATE OF SERVICE: 01/08/21 FOLLOW UP: ACCESSION NUMBERS(S): [id number] PROCEDURE(S): CT facial bones wo con REASON [...] isabel Interpreting Provider: Shandra Díaz MD Normal [facility] HEADWOon 01-08-2021 HEADWO [address] [place] [address] Cat Scan Report Signed PRELIMINARY DRAFT REPORT UNTIL ELECTRONICALLY SIGNED PATIENT: Arie Greenwood MR#: [id number] : 2000 AGE/SEX: 20 / F ADMITTED: 01/08/21 OUTSIDE LOCN: LOCATION: [facility] ATTENDING: ORDER PHYSICIAN: Dandy Orozco DO BIRAD: DATE OF SERVICE: 01/08/21 FOLLOW UP: ACCESSION NUMBERS(S): [id number] PROCEDURE(S): CT head/brain wo con REASON FOR [...] isabel Interpreting Provider: Shandra Díaz MD Normal [facility] Hepatic Panelon 01-08-2021 Alanine Aminotransferase 25 Units/L Normal 7-52 [facility] Comment on above: Performed By: #### H EPATIC, BMP, ACET, ETOH, MANUELA #### [facility] [address] [place] [address] Albumin [Mass/Vol] 4.4 g/dL Normal 3.5-5.7 [facility] Comment on above: Performed By: #### H EPATIC, BMP, ACET, ETOH, MANUELA #### [facility] [address] [place] [address] Albumin/Globulin [Mass ratio] 1.5 {ratio} Normal 1.1-2.2 [facility] Comment on above: Performed By: #### H EPATIC, BMP, ACET, ETOH, MANUELA #### [facility] [address] [place] [address] 48200 Alkaline Phosphatase 74 Units/L Normal 34-104 [facility] Comment on above: Performed By: #### H EPATIC, BMP, ACET, ETOH, MANUELA #### [facility] [address] [place] [address] 48296 Aspartate Amino Transferase 19 Units/L Normal 13-39 [facility] Comment on above: Performed By: #### H EPATIC, BMP, ACET, ETOH, MANUELA #### [facility] [address] [place], [place] [id number] Bilirubin [Mass/Vol] 0.3 mg/dL Normal 0.3-1.0 [facility] Comment on above: Performed By: #### H EPATIC, BMP, ACET, ETOH, MANUELA #### [facility] [address] [place] [address] 32887 Bilirubin,Indirect 0.2 mg/dL Normal 0.0-1.0 [facility] Comment on above: Performed By: #### H EPATIC, BMP, ACET, ETOH, MANUELA #### [facility] [address] [place] [address] 02336 Bilirubin.indirect [Mass/Vol] 0.1 mg/dL Normal 0.0-0.2 [facility] Comment on above: Performed By: #### H EPATIC, BMP, ACET, ETOH, MANUELA #### [facility] [address] [place] [address] 53637 Globulin (S) [Mass/Vol] 2.9 g/dL Normal 2.4-3.5 [facility] Comment on above: Performed By: #### H EPATIC, BMP, ACET, ETOH, MANUELA #### [facility] [address] [place] [address] 90818 Protein [Mass/Vol] 7.3 g/dL Normal 6.4-8.9 [facility] Comment on above: Performed By: #### H EPATIC, BMP, ACET, ETOH, MANUELA #### [facility] [address] [place] [address] MR CERVICAL SPINE WITHOUT CO NTRASTOrdered By: Lefty Hung on 01-08-2021 No significant abnormality Workstation ID: [id number] [facility] EXAMINATION: MR CERVICAL SPINE WITHOUT CONTRAST [...] Spinal cord, discs, and vertebrae are unremarkable. [facility] Interface, Rad In Fuji Speechq - [...] IMPRESSION: No significant abnormality Workstation ID: [id number] [facility] MR CERVICAL SPINE WITHOUT CO NTRASTon [...] PM EDT Transcribed by: SOO DIAMOND on [facility] Jan 08, 2021 3:40:43 PM EDT Finalized by: SOO DIAMOND on [facility] Jan 08, 2021 3:40:43 PM EDT [facility] Comment on above: Order Comment: Injur y/Trauma or Illness?:Illness/Other How long have you had these symptoms (acute/chronic)?:Acute Reason for exam?:trauma Type of Exam?:Initial Additional signs and symptoms?:neck pain No Panel InformationOrdered By: Lupillo East on 01-08-2021 Extra Tube Hold for add-ons. [facility] Comment on above: Auto resulted. Test Result, Urine on 01-08-2021 Beta HCG ( test) Ql (U) Negative Normal Negative [facility] Comment on above: Performed By: #### U PREG #### [facility] [address] [place] [address] [id number] SARS-CoV-2 (COVID-19) RNA NA A+probe Ql (Resp)Ordered By: Luis Alberto Nicolas on 01-08-2021 Influenza A Not detected Not Detected [facility] Influenza B Not detected Not Detected [facility] Interpretation and review of laboratory results Normal [facility] This test was performed under the [...] the following links: For Healthcare Providers: https://www.fda.gov/ media/482329/downloa d For Patients: https://www.fda.gov/ media/597058/downloa d [facility] SPCERVWOon 01-08-[address] [address] Cat Scan Report Signed PRELIMINARY DRAFT REPORT UNTIL ELECTRONICALLY SIGNED PATIENT: Arie Greenwood MR#: [id number] : 2000 AGE/SEX: 20 / F ADMITTED: 01/08/21 OUTSIDE LOCN: LOCATION: [facility] ATTENDING: ORDER PHYSICIAN: Dandy Orozco DO BIRAD: DATE OF SERVICE: 01/08/21 FOLLOW UP: ACCESSION NUMBERS(S): [id number] PROCEDURE(S): CT cervical spine wo con REASON FOR EXAM: head injury cc: Dandy Garciaopy; Witkiewicz,Dandy A. DO; EXAMINATION: CT OF THE CERVICAL SPINE [...] isabel Interpreting Provider: Shandra Díaz MD Normal [facility] Salicylateon 01-08-2021 Salicylate < 2.5 Low 15.0-30.0 [facility] Comment on above: Performed By: #### H EPATIC, BMP, ACET, ETOH, MANUELA #### [facility] [address] [place] [address] 92374 Urinalysis reflex Microscopi con 01-08-2021 Bilirubin,Urine Negative Normal Negative [facility] Comment on above: Performed By: #### U AMIC #### [facility] [address] [place] [address] 59398 Blood,Urine Negative Normal Negative [facility] Comment on above: Performed By: #### U AMIC #### [facility] [address] [place] [address] 12805 Clarity (U) Clear Normal Clear [facility] Comment on above: Performed By: #### U AMIC #### [facility] [address] [place] [address] 49703 Color (U) Colorless Abnormal Yellow [facility] Comment on above: Performed By: #### U AMIC #### [facility] [address] [place] [address] 92371 Glucose Ql (U) Normal Normal Normal [facility] Comment on above: Performed By: #### U AMIC #### [facility] [address] [place] [address] 75038 Ketones Ql (U) Negative Normal Negative [facility] Comment on above: Performed By: #### U AMIC #### [facility] [address] [place] [address] 92825 Leukocyte esterase Test strip Ql (U) Negative Normal Negative [facility] Comment on above: Performed By: #### U AMIC #### [facility] [address] [place] [address] 13693 Nitrite,Urine Negative Normal Negative [facility] Comment on above: Performed By: #### U AMIC #### [facility] [address] [place] [address] 73334 PH,Urine 6.5 pH Units Normal 5.0-8.0 [facility] Comment on above: Performed By: #### U AMIC #### [facility] [address] [place] [address] 44623 Protein,Urine Negative Normal Neg-Trace [facility] Comment on above: Performed By: #### U AMIC #### [facility] [address] [place] [address] 07682 Specific Rumsey,Urine 1.006 Low 1.010-1.025 [facility] Comment on above: Performed By: #### U AMI #### [facility] [address] [place] [address] 14358 Urobilinogen,Urine Normal Normal Normal [facility] Comment on above: Performed By: #### U AMI #### [facility] [address] [place] [address] 11411 hCG, Serum, QualitativeOrder ed By: Lefty Hung on 01-08-2021 Beta HCG ( test) Ql Negative Negative [facility] FACEon 12-25-[address] [address] XRay Report Signed PRELIMINARY DRAFT REPORT UNTIL ELECTRONICALLY SIGNED PATIENT: Arie Greenwood MR#: [id number] : 2000 AGE/SEX: 20 / F ADMITTED: 12/25/20 OUTSIDE LOCN: LOCATION: [facility] ATTENDING: Art Mejia CNP ORDER PHYSICIAN: Art Mejia CNP BIRAD: DATE OF SERVICE: 12/25/20 FOLLOW UP: ACCESSION NUMBERS(S): [id number] PROCEDURE(S): XR facial bones 3+V REASON FOR [...] MD Interpreting Provider: Elle Richard MD Normal [facility] Culture,Urineon 11-06-2020 Culture,Urine O:STREPB: Streptococcus agalactiae-Grp B (OrganismID: 1.1) Culture,Urine: [place] Count 10 uL (OrganismID: 1.1) >1,000 - [...] is intrinsically susceptible to (OrganismID: 1.1) Normal [facility] Comment on above: Performed By: #### U AREF #### [facility] [address] [place] [address] 45601 Acetaminophenon 11-05-2020 Acetaminophen [Mass/Vol] ug/mL Low 10-20 [facility] Comment on above: Performed By: #### U PREG #### [facility] [address] [place] [address] [phone] Basic Metabolic Panelon 10-16 Calcium [Mass/Vol] 8.9 mg/dL Normal 8.6-10.3 [facility] Comment on above: Performed By: #### U PREG #### [facility] [address] [place] [address] Chloride [Moles/Vol] 107 mmol/L Normal 98-107 [facility] Comment on above: Performed By: #### U PREG #### [facility] [address] [place] [address] 27459 CO2 [Moles/Vol] 26 mmol/L Normal 23-29 [facility] Comment on above: Performed By: #### U PREG #### [facility] [address] [place] [address] 05403 Creatinine [Mass/Vol] 0.71 mg/dL Normal 0.60-1.20 [facility] Comment on above: Performed By: #### U PREG #### [facility] [address] [place] [address] 15939 eGFR For Americans > 60 Normal [facility] Comment on above: Performed By: #### U PREG #### [facility] [address] [place] [address] 00353 eGFR For Non- Americans > 60 Normal [facility] Comment on above: Performed By: #### U PREG #### [facility] [address] [place] [address] 82521 Glucose [Mass/Vol] 96 mg/dL Normal 70-105 [facility] Comment on above: Performed By: #### U PREG #### [facility] [address] [place] [address] 53787 Osmolality,Calculated 289 Normal 280-300 [facility] Comment on above: Performed By: #### U PREG #### [facility] [address] [place] [address] 59781 Potassium [Moles/Vol] 3.8 mmol/L Normal 3.5-5.1 [facility] Comment on above: Performed By: #### U PREG #### [facility] [address] [place] [address] 40527 Sodium [Moles/Vol] 140 mmol/L Normal 136-145 [facility] Comment on above: Performed By: #### U PREG #### [facility] [address] [place] [address] 13362 Urea nitrogen [Mass/Vol] 11 mg/dL Normal 6-20 [facility] Comment on above: Performed By: #### U PREG #### [facility] [address] [place] [address] 64066 Urea nitrogen/Creatinine [Mass ratio] 15 mg/mg Normal - [facility] Comment on above: Performed By: #### U PREG #### [facility] [address] [place] [address] 53414 Complete Blood Counton 11-05 Basophils (Bld) [#/Vol] 0.0 10*3/uL Normal 0.0-0.2 [facility] Comment on above: Performed By: #### U AREF #### [facility] [address] [place] [address] 54233 Basophils/100 WBC (Bld) 0.3 % Normal [facility] [facility] Comment on above: Performed By: #### U AREF #### [facility] [address] [place] [address] 67206 Eosinophils (Bld) [#/Vol] 0.0 10*3/uL Normal 0.0-0.6 [facility] Comment on above: Performed By: #### U AREF #### [facility] [address] [place] [address] 58015 Eosinophils/100 WBC (Bld) 0.2 % Normal [facility] Comment on above: Performed By: #### U AREF #### [facility] [address] [place] [address] 64333 Erythrocyte distribution width (RBC) [Ratio] 11.8 % Normal 11.5-14.5 [facility] Comment on above: Performed By: #### U AREF #### [facility] [address] [place] [address] 90501 Hematocrit (Bld) [Volume fraction] 39.5 % Normal 35.3-44.9 [facility] Comment on above: Performed By: #### U AREF #### [facility] [address] [place] [address] 38824 Hemoglobin (Bld) [Mass/Vol] 13.5 g/dL Normal 11.5-15.4 [facility] Comment on above: Performed By: #### U AREF #### [facility] [address] [place] [address] 15836 Immature granulocytes/100 WBC (Bld) 0.3 % Normal 0-4 [facility] Comment on above: Performed By: #### U AREF #### [facility] [address] [place] [address] 51666 Lymphocytes (Bld) [#/Vol] 2.7 10*3/uL Normal 0.6-4.6 [facility] Comment on above: Performed By: #### U AREF #### [facility] [address] [place] [address] 39430 Lymphocytes/100 WBC (Bld) 27.1 % Normal [facility] Comment on above: Performed By: #### U AREF #### [facility] [address] [place] [address] 47763 MCH (RBC) [Entitic mass] 31.2 pg Normal 28.0-33.3 [facility] Comment on above: Performed By: #### U AREF #### [facility] [address] [place] [address] 51520 MCV (RBC) [Entitic vol] 91.2 fL Normal 83.0-100.0 [facility] Comment on above: Performed By: #### U AREF #### [facility] [address] [place] [address] 91395 Mean Corpuscular HGB Conc 34.2 g/dL Normal 31.6-35.5 [facility] Comment on above: Performed By: #### U AREF #### [facility] [address] [place] [address] 84790 Monocytes (Bld) [#/Vol] 0.8 10*3/uL Normal 0.0-1.3 [facility] Comment on above: Performed By: #### U AREF #### [facility] [address] [place] [address] 59820 Monocytes/100 WBC (Bld) 7.6 % Normal [facility] Comment on above: Performed By: #### U AREF #### [facility] [address] [place] [address] 31552 Neutrophils (Bld) [#/Vol] 6.4 10*3/uL Normal 1.6-8.9 [facility] Comment on above: Performed By: #### U AREF #### [facility] [address] [place] [address] 65468 Platelet mean volume (Bld) [Entitic vol] 9.7 fL Normal 9.4-12.4 [facility] Comment on above: Performed By: #### U AREF #### [facility] [address] [place] [address] 19150 Platelets (Bld) [#/Vol] 318 10*3/uL Normal 140-400 [facility] Comment on above: Performed By: #### U AREF #### [facility] [address] [place] [address] 39018 RBC (Bld) [#/Vol] 4.33 10*6/uL Normal 3.82-4.97 [facility] Comment on above: Performed By: #### U AREF #### [facility] [address] [place] [address] 45939 Segmented neutrophils/100 WBC (Bld) 64.5 % Normal [facility] Comment on above: Performed By: #### U AREF #### [facility] [address] [place] [address] 25744 WBC (Bld) [#/Vol] 9.9 10*3/uL Normal 4.3-11.1 [facility] Comment on above: Performed By: #### U AREF #### [facility] [address] [place] [address] 31999 Drug Screen, Urineon 021 Amphetamine Screen,Urine Negative Normal Zfbrkr=5432 [facility] Comment on above: Performed By: #### U DS #### [facility] [address] [place] [address] 24094 Barbiturate Screen,Urine Negative Normal Dtgenr=431 [facility] Comment on above: Performed By: #### U DS #### [facility] [address] [place] [address] 88509 Benzodiazepines Screen,Urine Negative Normal Hhhzxr=788 [facility] Comment on above: Performed By: #### U DS #### [facility] [address] [place] [address] 32275 Buprenorphine Screen,Urine Negative Normal Cutoff=5 [facility] Comment on above: Performed By: #### U DS #### [facility] [address] [place] [address] 26626 Cannabinoid Screen,Urine Positive Abnormal Cutoff = 50 [facility] Comment on above: Result Comment: Unco nfirmed presumptive positive. Refer to Urine Drug Screen Interpretation result for interpretative guidelines. Performed By: #### U DS #### [facility] [address] [place] [address] 81329 Cocaine Screen,Urine Negative Normal Cutoff= 300 [facility] Comment on above: Performed By: #### U DS #### [facility] [address] [place] [address] [phone] Opiate Screen,Urine Negative Normal Pptxly=722 [facility] Comment on above: Performed By: #### U DS #### [facility] [address] [place] [address] [id number] Phencyclidine Screen,Urine Negative Normal Cutoff=25 [facility] Comment on above: Performed By: #### U DS #### [facility] [address] [place] [address] 65759 Ur. Drug Screen Interpretation See Below Normal [facility] Comment on above: Result Comment: This is [...] request. Performed By: #### U DS #### [facility] [address] [place] [address] [id number] Emergency Documentationon Emergency Documentation [address] [id number] Emergency Department Note Signed PRELIMINARY DRAFT REPORT UNTIL ELECTRONICALLY SIGNED PATIENT: Arie Greenwood MR#: [id number] : 2000 AGE/SEX: 20 / F ADMITTED: [...] arty have your primary care physician Referrals: [facility] [Outside] Time of Disposition: [...] Color (Yellow) (more content not included)... Normal [facility] Emergency Documentation [address] [place] [id number] Emergency Department Note Signed with Joann PRELIMINARY DRAFT REPORT UNTIL ELECTRONICALLY SIGNED PATIENT: Arie Greenwood MR#: [id number] : 2000 AGE/SEX: 20 / F ADMITTED: [...] Dictated By: Rashmi Elizondo Addendum Signed By: 11/05/2023 11/05/2048 ADD/ATT: 11/05/20722 Addendum Dictated By: Disposition [...] boyfriend geneva (more content not included)... Normal [facility] Ethanolon 11-05-2020 Ethanol [Mass/Vol] mg/dL Normal Less than 10 [facility] Comment on above: Performed By: #### U AREF #### [facility] [address] [place] [address] 22529 HCG,Routine Teston 11-05-2020 HCG,Routine Test Negative Normal Negative [facility] Comment on above: Performed By: #### U AREF #### [facility] [address] [place] [address] 51466 POC Glucometer Teston 2020 Glucose [Mass/Vol] 107 mg/dL High 70-99 [facility] Comment on above: Performed By: #### U AREF #### [facility] [address] [place] [address] 13513 Salicylateon 11-05-2020 Salicylate < 2.5 Low 15.0-30.0 [facility] Comment on above: Performed By: #### U AREF #### [facility] [address] [place] [address] 45638 Urinalysis Reflex Cult Micro on 11-05-2020 Bacteria,Urine Many Abnormal None-Few [facility] Comment on above: Performed By: #### U AREF #### [facility] [address] [place] [address] 77698 Bilirubin,Urine Negative Normal Negative [facility] Comment on above: Performed By: #### U AREF #### [facility] [address] [place] [address] 80891 Blood,Urine Negative Normal Negative [facility] Comment on above: Performed By: #### U AREF #### [facility] [address] [place] [address] 01713 Clarity (U) Clear Normal Clear [facility] Comment on above: Performed By: #### U AREF #### [facility] [address] [place] [address] 22593 Color (U) Light-Yellow Normal Yellow [facility] Comment on above: Performed By: #### U AREF #### [facility] [address] [place] [address] 84811 Culture Indicated,Urine YES Abnormal NO A [facility] Comment on above: Performed By: #### U AREF #### [facility] [address] [place] [address] 90400 Glucose Ql (U) Normal Normal Normal [facility] Comment on above: Performed By: #### U AREF #### [facility] [address] [place] [address] 07531 Ketones Ql (U) Negative Normal Negative [facility] Comment on above: Performed By: #### U AREF #### [facility] [address] [place] [address] 98734 Leukocyte esterase Test strip Ql (U) Moderate Abnormal Negative [facility] Comment on above: Performed By: #### U AREF #### [facility] [address] [place] [address] 50031 Mucus,Urine Few Normal None-Few [facility] Comment on above: Performed By: #### U AREF #### [facility] [address] [place] [address] 87760 Nitrite,Urine Negative Normal Negative [facility] Comment on above: Performed By: #### U AREF #### [facility] [address] [place] [address] 01355 PH,Urine 7.5 pH Units Normal 5.0-8.0 [facility] Comment on above: Performed By: #### U AREF #### [facility] [address] [place] [address] 05874 Protein,Urine Negative Normal Neg-Trace [facility] Comment on above: Performed By: #### U AREF #### [facility] [address] [place] [address] 03786 RBC,Urine 0-3 Normal 0-3 [facility] Comment on above: Performed By: #### U AREF #### [facility] [address] [place] [address] 95000 Specific Rumsey,Urine 1.016 Normal 1.010-1.025 [facility] Comment on above: Performed By: #### U AREF #### [facility] [address] [place] [address] 24865 Squamous Epithelial Cell,Urine Few Normal None-Few [facility] Comment on above: Performed By: #### U AREF #### [facility] [address] [place] [address] 48268 Urobilinogen,Urine Normal Normal Normal [facility] Comment on above: Performed By: #### U AREF #### [facility] [address] [place] [address] 18047 WBC,Urine 5-15 Abnormal 0-3 [facility] Comment on above: Performed By: #### U AREF #### [facility] [address] [place] [address] 06421 Urine Cultureon 06-11-2020 Bacteria identified Cx Nom (U) Specimen description: Clean catch midstream urine Special requests: None Culture results: [id number] cfu/mL Distal urethral/perineal leticia Report status: Final [id number] Normal [facility] Comment on above: Performed By: #### U RNC #### [place] [address] C trach/N gono/T vag Panelon 06-10-2020 C. trachomatis amp. Not Detected Normal NODT [facility] Comment on above: Performed By: #### C TGCTP #### [place] [address] Comment Optimal performance is obtained with First Catch urines. Clean catch urine samples have been shown to have reduced sensitivity for the detection of C. trachomatis, N. gonorrhoeae and T. vaginalis using the APTIMA nucleic acid amplification method. Normal [facility] Comment on above: Performed By: #### C TGCTP #### [place] [address] N. gonorrhoeae amp. Not Detected Normal NODT [facility] Comment on above: Performed By: #### C TGCTP #### [place] [address] COMMENT Optimal performance is obtained with First Catch urines. Clean catch urine samples have been shown to have reduced sensitivity for the detection of C. trachomatis, N. gonorrhoeae and T. vaginalis using the APTIMA nucleic acid amplification method. Normal [facility] Comment on above: Performed By: #### C TGCTP #### [place] [address] T. vaginalis amp. Not Detected Normal [facility] Comment on above: Performed By: #### C TGCTP #### [place] [address] Grp A Strp rRNA GnPrbe,Throa ton 06-10-2020 Group A Strep rRNA Detection Not Detected [facility] C trach/N gono/T vag Panelon 06-09-2020 Specimen Description Urine Normal [facility] Comment on above: Performed By: #### C TGCTP #### [place] [address] POCT Direct Grp A Strep,Thro aton 06-09-2020 POCT Direct Grp A Strep,Throat Not Detected Normal NODT [facility] POCT HCG, Urine Qualitativeo n 06-09-2020 Beta HCG ( test) Ql (U) Negative Normal NEG [facility] Comment: First morning urine is the specimen of choice for urine test. False negative results can occur when random urine specimens are tested. A serum test is recommended if results do not correlate with the patient's clinical condition. Normal [facility] POCT Urinalysis, Strip Onlyo n 06-09-2020 Appearance (U) Cloudy Normal [facility] Bilirubin, Urine Strip Small Abnormal NEG [facility] Glucose, Urine Strip Negative Normal [facility]G [facility] Ketone, Urine Strip 15 mg/dL Abnormal NEG [facility] Leukocyte esterase, Ur Strip Negative Normal NEG [facility] Nitrite, Urine Strip Negative Normal NEG [facility] Occult blood, Urine Strip Large Abnormal NEG [facility] pH, Urine Strip 6.0 Normal 4.5-8.0 [facility] Protein (U) [Mass/Vol] 100 mg/dL Abnormal NEG [facility] Specific Rumsey, Urine Strip > or = 1.030 Normal 1.007-1.030 [facility] Specimen Color Other Normal [facility] Urobilinogen Qn (U) 1.0 Peyton U/dL Normal <1.1 [facility] SARS-[facility] SARS-CoV-2, NUSRAT to [facility] SEE BELOW Normal [facility] Comment on above: Result Comment: The specimen submitted does not meet the laboratory's criteria for acceptability. Refer to [facility]'s Directory of Services for specimen acceptability criteria. Received: Media containing guanidine thiocyanate Contacted Cyn Samuel at your facility on 05/13/20. Performed at: [email or web address] [facility] [address] [facility], [place], [place] [id number] [employer] Floor Installer: Magaly Mayes MD, Phone: [phone] Performed By: #### C [id number] #### [facility] Laboratory Services Dr. Ricardo Geurra MD [address] [place] [address] 45662 Vital Signs Date Time Vital Sign Value Performing Clinician Faci lity 04-29-2024 16:05-0400 Body height 160.02 cm [facility] 04-29-2024 16:05-0400 Body mass index (BMI) [Ratio] 24.7 kg/m2 [facility] 04-29-2024 16:05-0400 Body temperature 97.5 [degF] [facility] 04-29-2024 16:05-0400 Body weight 63.21 kg [facility] 04-29-2024 16:05-0400 Diastolic blood pressure 85 mm[Hg] [facility] 04-29-2024 16:05-0400 Heart rate 77 /min [facility] 04-29-2024 16:05-0400 Respiratory rate 16 /min [facility] 04-29-2024 16:05-0400 SaO2% (BldA) [Mass fraction] 95 % [facility] 04-29-2024 16:05-0400 Systolic blood pressure 123 mm[Hg] [facility] 02-26-2024 11:20-0400 Body height 160.02 cm [facility] 02-26-2024 11:20-0400 Body mass index (BMI) [Ratio] 24 kg/m2 [facility] 02-26-2024 11:20-0400 Body temperature 97.9 [degF] [facility] 02-26-2024 11:20-0400 Body weight 61.46 kg [facility] 02-26-2024 11:20-0400 Diastolic blood pressure 70 mm[Hg] [facility] 02-26-2024 11:20-0400 Heart rate 86 /min [facility] 02-26-2024 11:20-0400 Respiratory rate 16 /min [facility] 02-26-2024 11:20-0400 SaO2% (BldA) [Mass fraction] 99 % [facility] 02-26-2024 11:20-0400 Systolic blood pressure 112 mm[Hg] [facility] 12-07-2023 17:34-0500 Body height 160.02 cm [facility] 12-07-2023 17:34-0500 Body mass index (BMI) [Ratio] 22.5 kg/m2 [facility] 12-07-2023 17:34-0500 Body temperature 98.2 [degF] [facility] 12-07-2023 17:34-0500 Body weight 57.66 kg [facility] 12-07-2023 17:34-0500 Diastolic blood pressure 62 mm[Hg] [facility] 12-07-2023 17:34-0500 Heart rate 98 /min [facility] 12-07-2023 17:34-0500 Respiratory rate 18 /min [facility] 12-07-2023 17:34-0500 SaO2% (BldA) [Mass fraction] 98 % [facility] 12-07-2023 17:34-0500 Systolic blood pressure 108 mm[Hg] [facility] 10-22-2023 10:30-0500 Body height 160.02 cm Aishwarya Oconnellmond Other [facility] 10-22-2023 10:30-0500 Body mass index (BMI) [Ratio] 21.25 kg/m2 Aishwarya Oconnellmond Other [email or web address] [facility] [employer] Other 10-22-2023 10:30-0500 Body temperature 97.3 [degF] Aishwarya Oconnellmond Other [email or web address] [facility] [employer] Other 10-22-2023 10:30-0500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
== END 2024-08-07 10:04 | disposition home or self-care (01) ==
LOC: RAD 10:03
PROVIDERS: Visit Provider Physician Assistant
DX: M79.672 Pain in left foot (principal); S92.425D Nondisplaced fracture of distal phalanx of left great toe, subsequent encounter for fracture with routine healing
CPT/HCPCS: 73630